=== PATIENT | female | born 1965 | race Caucasian/White ===

== ENCOUNTER 2019-03-22 13:55 | Inpatient (IN) ==
[2019-03-22] MEDS ORDERED: 0.9 % Sodium Chloride 1,000 ML IVC ONE (14:31)
[2019-03-22 15:21] LABS: Bilirubin,Urine Negative (Negative); Blood,Urine Negative (Negative); Clarity,Urine Clear (Clear); Color,Urine Yellow (Yellow); Glucose,Urine (UA) >=1000 mg/dL (Normal); Ketones,Urine Negative (Negative); Leukocyte Esterase,Urine Negative (Negative); Nitrite,Urine Negative (Negative); PH,Urine 5.5 pH Units (5.0-8.0); Protein,Urine Negative (Neg-Trace); Specific Gravity,Urine > 1.030 (1.010-1.025); Urobilinogen,Urine Normal (Normal)
[2019-03-22 15:30] LABS: Basophils # 0.1 K/mcL (0.0-0.2); Basophils % 0.9 %; Eosinophils # 0.1 K/mcL (0.0-0.6); Eosinophils % 1.2 %; Hematocrit 39.8 % (35.3-44.9); Hemoglobin 12.7 g/dL (11.5-15.4); Immature Granulocytes % 0.3 % (0-4); Lymphocytes # 2.7 K/mcL (0.6-4.6); Lymphocytes % 25.1 %; Mean Corpuscular HGB Conc 31.9 g/dL (31.6-35.5); Mean Corpuscular Volume 93.9 fL (83.0-100.0); Mean Platelet Volume 9.8 fL (9.4-12.4); Monocytes # 0.7 K/mcL (0.0-1.3); Monocytes % 6.6 %; Platelet Count 380 K/mcL (140-400); Red Blood Count 4.24 M/mcL (3.82-4.97); Red Cell Distribution Width 12.5 % (11.5-14.5); Segmented Neutrophils % 65.9 %
[2019-03-22 15:47] LABS: Alanine Aminotransferase 11 Units/L (7-52); Albumin 3.8 g/dL (3.5-5.7); Albumin/Globulin Ratio 0.9 (1.1-2.2); Alkaline Phosphatase 98 Units/L (34-104); Aspartate Amino Transferase 10 Units/L (13-39); BUN/Creatinine Ratio 15 (6-26); Bilirubin,Total 0.4 mg/dL (0.3-1.0); Blood Urea Nitrogen 12 mg/dL (6-20); Calcium 9.5 mg/dL (8.6-10.3); Carbon Dioxide 26 mEq/L (23-29); Chloride 103 mEq/L (98-107); Globulin 4.4 g/dL (2.4-3.5); Glucose 301 mg/dL (70-105); Osmolality,Calculated 293 (280-300); Potassium 3.8 mEq/L (3.5-5.1); Sodium 136 mEq/L (136-145); Total Protein 8.2 g/dL (6.4-8.9); eGFR For Non-African Americans > 60 (> 60)
[2019-03-22] MEDS ORDERED: Piperacillin/Tazobactam 4.5 GM in Water for inj. (sterile) 20 ML 20 ML IVP ONE (16:39)
--- NOTE | 2019-03-22 16:40 | Emergency Department Note ---
Disposition Clinical Impression: Cellulitis of great toe, right, Hyperglycemia, Cellulitis Disposition: Admitted As Inpatient Condition: Good Referrals: Andry Flores MD [Primary Care Provider] - Forms: ED Satisfaction Letter Time of Disposition: 16:48 Extremity Problem HPI - General Chief complaint: ED Extremity Problem,Nontraumatic Stated complaint: Toe infection Time Seen by Provider: 03/22/19 14:24 Source: patient Limitations: no limitations - History of Present Illness HPI Narrative: Patient is a 53-year-old female that presents to the emergency department with chief complaint of swelling and pain to right great toe. Patient reports she has history of diabetes and has been having difficulty controlling her blood sugars. Patient states in the last 3 weeks her right great toe has become red and swollen and she is also noticed that she has had swollen lymph nodes in her groin and along her right leg. The patient reports this is similar to when her she has had infection on the left lower extremity for the past required debridement and also IV antibiotics. The patient reports the pain is worse with ambulation and improves with rest Pain Scale: 0 - Related Data Home Medications Medication Instructions Recorded Confirmed Albuterol Sulfate [Albuterol 2 puff IH Q4H PRN 04/22/16 04/22/16 Inhaler] Aspirin 81 mg PO DAILY 04/22/16 04/22/16 Carvedilol [Coreg] 6.25 mg PO BIDWM 04/22/16 04/22/16 Cetirizine HCl [Zyrtec] 10 mg PO DAILY 04/22/16 04/22/16 Cyclobenzaprine [Flexeril] 20 mg PO TID 04/22/16 04/22/16 Ezetimibe [Zetia] 10 mg PO QPM 04/22/16 04/22/16 Furosemide [Lasix] 20 mg PO DAILY 04/22/16 04/22/16 Gabapentin [Neurontin] 400 mg PO TID 04/22/16 04/22/16 Insulin ASPART [Novolog Flexpen] 25 - 30 unit SQ TIDWM 04/22/16 04/22/16 Insulin Glargine,Hum.rec.anlog 65 unit SQ HS 04/22/16 04/22/16 [Lantus Solostar] Lisinopril [Zestril] 10 mg PO DAILY 04/22/16 04/22/16 Rosuvastatin Calcium [Crestor] 10 mg PO QPM 04/22/16 04/22/16 Sitagliptin Phos/Metformin HCl 1 each PO BID 04/22/16 04/22/16 [Janumet 50-1,000 mg Tablet] Previous Rx's Medication Instructions Recorded OxyCODONE/APAP 5/325 [Percocet 1 each PO Q6HR PRN #30 tablet 04/22/16 5/325 MG] Ciprofloxacin [Cipro] 500 mg PO BID #20 tablet 11/07/17 Clindamycin [Cleocin] 300 mg PO Q6HR #40 capsule 11/07/17 HYDROcodone/Acet 10/325 mg [[place] 1 tab PO Q6HR PRN #10 tab 11/07/17 10-325 mg] Allergies Allergy/AdvReac Type Severity Reaction Status Date / Time latex AdvReac Blister Verified 11/07/17 08:53 tape AdvReac Blister Uncoded 11/07/17 08:53 topical antibiotics AdvReac Blister Uncoded 11/07/17 08:53 All systems ED: reviewed and negative except as stated. Past Medical History - Past Medical History Attestation: Yes The following information was validated with the patient. 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 Head: Normocephalic/atraumatic Eyes:PERRLA, EOMI, no conjunctivitis Nares: Without d/c. Ears: No erythema or d/c noted. Oralpharnyx: P&MMM noted, Neck: Supple, no JVD or HEAVY CLEANER noted. Cardovascular: regular rate and rhythm without murmur, brisk capillary refill, no peripheral edema. Lungs: Clear to ascultation bilaterally, non-labored Abd: Soft nontender, Non Distended, no guarding, no rebound. : Defered Extremities: moves all extremities equally and there is erythema of the right great toe and localized swelling to the great toe. There is no ulcer or fluctuance. Neuro: AOx3, no obvious gross neuro deficit Psych: Normal Affect Derm: No rash noted - General Limitations: no limitations General appearance: alert Course Vital Signs Temperature 98.6 F 03/22/19 14:08 Pulse Rate 101 03/22/19 14:08 Respiratory Rate 18 03/22/19 14:08 Blood Pressure 154/77 03/22/19 14:08 O2 Sat by Pulse Oximetry 98 03/22/19 14:08 Temperature 98.6 F 03/22/19 14:49 Pulse Rate 78 03/22/19 15:55 Respiratory Rate 16 03/22/19 15:55 Blood Pressure 104/65 03/22/19 15:55 O2 Sat by Pulse Oximetry 100 03/22/19 15:55 Oxygen Delivery Oxygen Delivery Room Air Extremity Problem, Nontraumati - Lab Data Result diagrams: 03/22/19 15:05 03/22/19 15:05 Lab Results 03/22/19 03/22/19 03/22/19 Range/Units 14:47 15:05 15:05 WBC (4.3-11.1) K/mcL RBC (3.82-4.97) M/mcL Hgb (11.5-15.4) g/dL Hct (35.3-44.9) % MCV (83.0-100.0) fL MCH (28.0-33.3) pg MCHC (31.6-35.5) g/dL RDW (11.5-14.5) % Plt Count (140-400) K/mcL MPV (9.4-12.4) fL Immature Gran % (0-4) % Seg Neutrophils % % Lymphocytes % % Monocytes % % Eosinophils % % Basophils % % Neutrophils # (1.6-8.9) K/mcL Lymphocytes # (0.6-4.6) K/mcL Monocytes # (0.0-1.3) K/mcL Eosinophils # (0.0-0.6) K/mcL Basophils # (0.0-0.2) K/mcL ESR >= 130 H (0-15) mm/hr Sodium (136-145) mEq/L Potassium (3.5-5.1) mEq/L Chloride (98-107) mEq/L Carbon Dioxide (23-29) mEq/L BUN (6-20) mg/dL Creatinine (0.60-1.20) mg/dL Est GFR ( Amer) (> 60) Est GFR (Non-Af Amer) (> 60) BUN/Creatinine Ratio (6-26) Glucose (70-105) mg/dL Calculated Osmolality (280-300) Lactic Acid 1.7 (0.5-2.2) mmol/L Calcium (8.6-10.3) mg/dL Total Bilirubin (0.3-1.0) mg/dL AST (13-39) Units/L ALT (7-52) Units/L Alkaline Phosphatase (34-104) Units/L C-Reactive Protein (Less than 10) mg/L Serum Total Protein (6.4-8.9) g/dL Albumin (3.5-5.7) g/dL Globulin (2.4-3.5) g/dL Albumin/Globulin Ratio (1.1-2.2) Urine Color Yellow (Yellow) Urine Clarity Clear (Clear) Urine pH 5.5 (5.0-8.0) pH Units Ur Specific [place] > 1.030 H (1.010-1.025) Urine Protein Negative (Neg-Trace) mg/dL Urine Glucose (UA) >=1000 H (Normal) mg/dL Urine Ketones Negative (Negative) mg/dL Urine Blood Negative (Negative) Urine Nitrite Negative (Negative) Urine Bilirubin Negative (Negative) Urine Urobilinogen Normal (Normal) mg/dL Ur Leukocyte Esterase Negative (Negative) Ur Culture Indicated? NO (NO) 03/22/19 03/22/19 03/22/19 Range/Units 15:05 15:05 15:05 WBC 10.7 (4.3-11.1) K/mcL RBC 4.24 (3.82-4.97) M/mcL Hgb 12.7 (11.5-15.4) g/dL Hct 39.8 (35.3-44.9) % MCV 93.9 (83.0-100.0) fL MCH 30.0 (28.0-33.3) pg MCHC 31.9 (31.6-35.5) g/dL RDW 12.5 (11.5-14.5) % Plt Count 380 (140-400) K/mcL MPV 9.8 (9.4-12.4) fL Immature Gran % 0.3 (0-4) % Seg Neutrophils % 65.9 % Lymphocytes % 25.1 % Monocytes % 6.6 % Eosinophils % 1.2 % Basophils % 0.9 % Neutrophils # 7.0 (1.6-8.9) K/mcL Lymphocytes # 2.7 (0.6-4.6) K/mcL Monocytes # 0.7 (0.0-1.3) K/mcL Eosinophils # 0.1 (0.0-0.6) K/mcL Basophils # 0.1 (0.0-0.2) K/mcL ESR (0-15) mm/hr Sodium 136 (136-145) mEq/L Potassium 3.8 (3.5-5.1) mEq/L Chloride 103 (98-107) mEq/L Carbon Dioxide 26 (23-29) mEq/L BUN 12 (6-20) mg/dL Creatinine 0.79 (0.60-1.20) mg/dL Est GFR ( Amer) > 60 (> 60) Est GFR (Non-Af Amer) > 60 (> 60) BUN/Creatinine Ratio 15 (6-26) Glucose 301 H (70-105) mg/dL Calculated Osmolality 293 (280-300) Lactic Acid (0.5-2.2) mmol/L Calcium 9.5 (8.6-10.3) mg/dL Total Bilirubin 0.4 (0.3-1.0) mg/dL AST 10 L (13-39) Units/L ALT 11 (7-52) Units/L Alkaline Phosphatase 98 (34-104) Units/L C-Reactive Protein 154 H (Less than 10) mg/L Serum Total Protein 8.2 (6.4-8.9) g/dL Albumin 3.8 (3.5-5.7) g/dL Globulin 4.4 H (2.4-3.5) g/dL Albumin/Globulin Ratio 0.9 L (1.1-2.2) Urine Color (Yellow) Urine Clarity (Clear) Urine pH (5.0-8.0) pH Units Ur Specific [place] (1.010-1.025) Urine Protein (Neg-Trace) mg/dL Urine Glucose (UA) (Normal) mg/dL Urine Ketones (Negative) mg/dL Urine Blood (Negative) Urine Nitrite (Negative) Urine Bilirubin (Negative) Urine Urobilinogen (Normal) mg/dL Ur Leukocyte Esterase (Negative) Ur Culture Indicated? (NO)
[2019-03-22] MEDS ORDERED: Piperacillin/Tazobactam 3.375 GM in 0.9 % Sodium Chloride Mini Bag 100 ML IVPB ONE (16:43)
[2019-03-22] MEDS ORDERED: *HR* OxyCODONE/APAP 5/325 TABLET PO ONE (17:02)
--- NOTE | 2019-03-22 17:31 | Internal Med History&Physical ---
Date of Encounter: 03/22/19 Time of Encounter: 17:30 Internal Medicine - H&P: HPI Chief complaint: Right foot pain Admitted From: Home Plans for Post Hospital Care: Home History of present illness: Ms. Gallo is a 53 year old female with past medical history of DM-II, PVD, HLD, HTN, current smoker (smokes 1PPD), who presents with right great toe, swelling, edema, pain, and redness. Pt states she was walking in the [place] with her friends about 2 weeks ago. She states she noticed her toe had a hole in it about a day or so later. She states she tried to self treat at home but got progressively worse. Pt states she would have ocme in sooner but did not have insurance. Pt admits to fever and chills. Denies N/V ro diarrhea. In ED CBC WNL. BMP showed glucose 310. Right foot x ray XR/XR foot 3V RT IMPRESSION: Severe osteomyelitis of the 1st distal phalanx. Associated pathologic fracture. FULL code. Past Med Surg Social Fam HX - Past Medical History Medical history: asthma, diabetes, hyperlipidemia, hypertension, myocardial infarction, seizures Additional medical history: HTN. DM. Incisional hernia. latex allergy. COPD. Carotid bruit Psychiatric history: anxiety, bipolar, depression - Past Surgical History Surgical History: appendectomy, cholecystectomy Additional surgical history: bilat. shoulder surgeries, elbow surgery - Social History Smoking Status: Current every day smoker Smokeless Tobacco Status: No Alcohol use: none Drug use: none Internal Medicine - H&P: Meds Albuterol Sulfate [Albuterol Inhaler] 2 puff IH Q4H PRN 04/22/16 [History] Aspirin 81 mg PO DAILY 04/22/16 [History] Cetirizine HCl [Zyrtec] 10 mg PO DAILY 04/22/16 [History] Insulin ASPART [Novolog Flexpen] 25 - 30 unit SQ TIDWM 04/22/16 [History] Insulin Glargine,Hum.rec.anlog [Lantus Solostar] 65 unit SQ HS 04/22/16 [History] Rosuvastatin Calcium [Crestor] 10 mg PO QPM 04/22/16 [History] Allergy/AdvReac Type Severity Reaction Status Date / Time latex AdvReac Blister Verified 11/07/17 08:53 tape AdvReac Blister Uncoded 11/07/17 08:53 topical antibiotics AdvReac Blister Uncoded 11/07/17 08:53 All Systems PM: A 10-system review of systems was performed and is negative for pertinent findings except as documented above in the HPI. - Constitutional Vitals: Temp Pulse Resp BP Pulse Ox 98.6 F 78 16 104/65 100 03/22/19 14:49 03/22/19 15:55 03/22/19 15:55 03/22/19 15:55 03/22/19 15:55 General appearance: Present: A&O X 3, no acute distress Exam: . - Head Head exam: Present: atraumatic, normocephalic - Eye Eye exam: Present: PERRL, conjuntiva pink, sclera anicteric Pupils: Present: PERRL - Neck Neck exam general surgery: Present: supple, trachea midline. Absent: lymphadenopathy - Respiratory Respiratory exam: Present: CTAB. Absent: accessory muscle use, rales, rhonchi, wheezes - Cardiovascular Cardiovascular exam: Present: RRR, +S1, +S2. Absent: diastolic murmur, gallop, rubs, systolic murmur - GI/Abdominal GI/Abdominal exam: Present: normal bowel sounds, soft, no peritoneal signs. Absent: distended, tenderness - Extremities Exam Extremities exam: Present: tenderness, warm, radial pulses palpable and symmetrical. Absent: calf tenderness, cyanotic, pedal edema Additional comments: swollen, erythematous R great toe that is painful to the touch - Neurological Exam Neurological exam: Present: CN II-XII intact, oriented X3, no focal deficits. Absent: pronater drift, facial droop, speech deficit - Skin Skin exam: Present: dry, intact Internal Med - H&P Results - Labs CBC & Chem 7: 03/22/19 15:05 03/22/19 15:05 Labs: Short CBC 03/22/19 Range/Units 15:05 WBC 10.7 (4.3-11.1) K/mcL Hgb 12.7 (11.5-15.4) g/dL Hct 39.8 (35.3-44.9) % Plt Count 380 (140-400) K/mcL Neutrophils # 7.0 (1.6-8.9) K/mcL BMP 03/22/19 15:05 Sodium 136 Potassium 3.8 Chloride 103 Carbon Dioxide 26 BUN 12 Creatinine 0.79 Glucose 301 H Calcium 9.5 Liver Function 03/22/19 Range/Units 15:05 Total Bilirubin 0.4 (0.3-1.0) mg/dL AST 10 L (13-39) Units/L ALT 11 (7-52) Units/L Alkaline Phosphatase 98 (34-104) Units/L Albumin 3.8 (3.5-5.7) g/dL Urine 03/22/19 Range/Units 14:47 Urine Color Yellow (Yellow) Urine Clarity Clear (Clear) Urine pH 5.5 (5.0-8.0) pH Units Ur Specific [place] > 1.030 H (1.010-1.025) Urine Protein Negative (Neg-Trace) mg/dL Urine Glucose (UA) >=1000 H (Normal) mg/dL - Impressions ITS Impressions Chest X-Ray 03/22/19 14:32 IMPRESSION: No active cardiopulmonary disease D/ / Hermilo Oquendo MD / Hermilo Oquendo MD Interpreting Provider: Hermilo Oquendo MD Foot X-Ray 03/22/19 14:36 IMPRESSION: Severe osteomyelitis of the 1st distal phalanx. Associated pathologic fracture. D/ / Matt Dennison MD / Matt Dennison MD Interpreting Provider: Matt Dennison MD - Assessment and Plan (1) Osteomyelitis Current Visit: Yes Status: Acute Assessment and plan: Started on Vancomycin and Zosyn. Podiatry consulted. Pt reports similar infection in left last year. Qualifiers: Qualified Code(s): M86.9 - Osteomyelitis, unspecified (2) Diabetes type 2, uncontrolled Current Visit: Yes Status: Acute Assessment and plan: Will check Hgb A1c. Place on insulin and SSI Qualifiers: Qualified Code(s): E11.65 - Type 2 diabetes mellitus with hyperglycemia (3) HLD (hyperlipidemia) Current Visit: Yes Status: Acute Assessment and plan: Resume home meds Qualifiers: Qualified Code(s): E78.5 - Hyperlipidemia, unspecified (4) Essential hypertension Current Visit: Yes Status: Acute Assessment and plan: hydralazine PRN. Pt needs to clarify home BP medication. - Time Spent With Patient Total time spent is greater than 50% in coordination of care (as documented) at patient's floor/unit and/or counseling patient: Greater than 35 minutes
[2019-03-22] MEDS ORDERED: *HR* Dextrose 50 % in Water (Syg) 50 ML SYRINGE IVP PRN (17:57)
[2019-03-22] MEDS ORDERED: D5% in Water 1,000 ML IVC PRN (17:57)
[2019-03-22] MEDS ORDERED: Dextrose Gel 15 GM/37.5 ML TUBE PO PRN ×2 (17:57)
[2019-03-22] MEDS ORDERED: hydrALAZINE 10 MG TABLET PO PRN (18:06)
[2019-03-22 20:29] LABS: Estimated Average Glucose 286 mg/dl; Hemoglobin A1C 11.6 %
[2019-03-22] MEDS ORDERED: Insulin DETEMIR 100 UNIT/ML X5UNITS SQ SCH (21:00)
[2019-03-22] MEDS ORDERED: Acetaminophen 325 MG TABLET PO PRN (21:26)
[2019-03-23] MEDS: Piperacillin/Tazobactam 3.375 GM in 0.9 % Sodium Chloride Mini Bag 100 ML IVPB SCH ×3 (00:26→17:15)
[2019-03-23] MEDS ORDERED: Ibuprofen 400 MG TABLET PO ONE (00:38)
[2019-03-23 04:18] LABS: Basophils # 0.1 K/mcL (0.0-0.2); Basophils % 0.6 %; Eosinophils # 0.2 K/mcL (0.0-0.6); Eosinophils % 2.2 %; Hematocrit 34.3 % (35.3-44.9); Immature Granulocytes % 0.2 % (0-4); Lymphocytes % 36.5 %; Mean Corpuscular HGB Conc 31.2 g/dL (31.6-35.5); Mean Corpuscular Hemoglobin 29.7 pg (28.0-33.3); Mean Corpuscular Volume 95.3 fL (83.0-100.0); Monocytes # 0.7 K/mcL (0.0-1.3); Monocytes % 8.8 %; Neutrophils # 4.2 K/mcL (1.6-8.9); Platelet Count 313 K/mcL (140-400); Red Cell Distribution Width 12.6 % (11.5-14.5); Segmented Neutrophils % 51.7 %
[2019-03-23 04:19] LABS: Hemoglobin 10.7 g/dL (11.5-15.4)
[2019-03-23 04:39] LABS: Alanine Aminotransferase 8 Units/L (7-52); Albumin 3.2 g/dL (3.5-5.7); Albumin/Globulin Ratio 0.9 (1.1-2.2); Alkaline Phosphatase 77 Units/L (34-104); Aspartate Amino Transferase 10 Units/L (13-39); BUN/Creatinine Ratio 23 (6-26); Bilirubin,Total 0.3 mg/dL (0.3-1.0); Blood Urea Nitrogen 16 mg/dL (6-20); Calcium 8.4 mg/dL (8.6-10.3); Carbon Dioxide 24 mEq/L (23-29); Chloride 110 mEq/L (98-107); Globulin 3.6 g/dL (2.4-3.5); Glucose 75 mg/dL (70-105); Osmolality,Calculated 290 (280-300); Potassium 4.1 mEq/L (3.5-5.1); Sodium 140 mEq/L (136-145); Total Protein 6.8 g/dL (6.4-8.9); eGFR For Non-African Americans > 60 (> 60)
[2019-03-23] MEDS ORDERED: Loratadine 10 MG TABLET PO SCH (09:00)
[2019-03-23] MEDS ORDERED: Aspirin 81 MG TAB.CHEW PO SCH (09:00)
[2019-03-23] MEDS: Insulin LISPRO 300 UNITS/3 ML VIAL SQ SCH ×3 (09:40→19:33)
--- NOTE | 2019-03-23 09:49 | Podiatry Consult Note ---
Date of Encounter: 03/23/19 Time of Encounter: 09:05 Assessment and Plan (1) Ulcer of right great toe due to diabetes mellitus Current visit: Yes Status: Acute Assessment: -Right great toe edematous and erythemic with ulcer measuring 0.7 x 0.5 x 0.6 cm noted distal medial aspect with minimal serosanguineous drainage. No odor. The ulcer is flucutant and probes 0.6 cm but not to bone. No undermining. Dry flaking tissue noted around ulcer. Toenail thick, brittle, and mycotic with subungual debris. No lymphangitis noted. -2/4 PT and 1/4 DP pulse -Cap refill less than 3 seconds -No edema to lower extremity, no pain with calf squeeze, venous duplex showed evidence of a normal exam -WBC 8.1 -ESR >130, CRP 154 -Patient afebrile since midnight -Hgb A1c 11.6 -Right foot x-ray shows evidence of severe osteomyelitis of the 1st distal phalanx. Associated pathologic fracture -MRI shows evidence of osteomyelitis of the 1st distal phalanx with destructive changes Plan: -Exam and evaluate -Cultures (anaerobic and aerobic) obtained and left at bedside for nursing staff to label and sent to lab -Flushed ulcer with sterile salie -Painted site with betadine and covered with dry 4x4 and Kerlix dressing, secured with tape -Keep NPO -OR later today for I&D, possible partial versus whole amputation of toe by Dr. Gauthier -Nature of the procedure, risks versus benefits, potential complications, consequences of surgery,and conditions discussed. All questions and concerns addressed. Consent signed and placed in chart. (2) Diabetes type 2, uncontrolled Current visit: Yes Status: Acute Assessment: -Patient reports she has not had insurance for approximately two months until yesterday and has not had appropriate medication for her diabetes -BS 75 down from 301 on 03/23/2019 -Hgb A1c 11.6 Plan: Tight glycemic control to prevent further complications and promote wound healing Qualifiers: Glycemic state: with hyperglycemia Qualified Code(s): E11.65 - Type 2 diabetes mellitus with hyperglycemia History of Present Illness HPI: Ms. Gallo is a 53 year old female admitted to the hospital for pain, swelling, and redness to right great toe. Patient does have a past medical history of diabetes type II, peripheral vascular disease, hyperlipidemia, and hypertension. She reports she has a history of thickened skin to the end of her toes and has been treated by Dr. Huff in the past for toe ulcers. She has not had insurance for approximately 2 months until yesterday and during that time the only insulin she was using was fast acting insulin and it may have been outdated. She reports two weeks ago she was walking in a [place] bed with her shoes on. She denies any injury, but states she was watching the right toe due to the callus. Patient reports one week ago she developed redness, swelling, and pain to the right great toe with associated symptoms of intermittent fever, diarrhea, and chills. Her highest temperature here in the hospital and at home has been 100.4. She denies any chest pain or shortness of breath. She does report calf tenderness. Patient did undergo a venous duplex since her admission that showed evidence of normal right lower extremity deep and superficial venous exam and normal contralateral common femoral artery. An CBC revealed a WBC of 8.1, ESR >130, and CRP 154. Patient's Hgb A1c is 11.6. She did have a right foot x-ray that showed evidence of severe osteomyelitis of the 1st distal phalanx. Associated pathologic fracture. An MRI was completed of the right foot that showed evidence of osteomyelitis of the 1st distal phalanx with destructive changes. Patient was started on IV Zosyn and Vancomycin. Patient reports the pain in her toe is better today and rates it as a 5 on a 1-10 pain scale. Patient reports she is a smoker. Discussed with patient in length that her diabetes and tobacco use are contributing to her wound and to prevent further complications and promote healing she needed to control her blood sugars and keep them below 150 and stop smoking. Patient was tearful and in agreement. Past Med Surg Social Fam HX - Past Medical History Medical history: asthma, diabetes, hyperlipidemia, hypertension, myocardial infarction, seizures Additional medical history: ONE SEIZURE 10 YEARS AGO RELATED TO LOW BLOOD SUGAR - DOES NOT TAKE SEIZURE MEDICATION Psychiatric history: anxiety, bipolar, depression - Past Surgical History Surgical History: appendectomy, cholecystectomy Additional surgical history: bilat. shoulder surgeries, elbow surgery - Social History Smoking Status: Current every day smoker Packs per day: 1 Smokeless Tobacco Status: No Alcohol use: none Drug use: none Medications and Allergies Albuterol Sulfate [Albuterol Inhaler] 2 puff IH Q4H PRN 04/22/16 [History] Aspirin 81 mg PO DAILY 04/22/16 [History] Cetirizine HCl [Zyrtec] 10 mg PO DAILY 04/22/16 [History] Insulin ASPART [Novolog Flexpen] 25 - 30 unit SQ TIDWM 04/22/16 [History] Insulin Glargine,Hum.rec.anlog [Lantus Solostar] 65 unit SQ HS 04/22/16 [Histor y] Rosuvastatin Calcium [Crestor] 10 mg PO QPM 04/22/16 [History] Allergy/AdvReac Type Severity Reaction Status Date / Time latex AdvReac Blister Verified 11/07/17 08:53 tape AdvReac Blister Uncoded 11/07/17 08:53 topical antibiotics AdvReac Blister Uncoded 11/07/17 08:53 All Systems Reviewed: The remainder of the systems were reviewed and are negative Review of systems: As per HPI - Constitutional Constitutional: fever(s) - Cardiovascular Cardiovascular: no chest pain - Respiratory Respiratory: no dyspnea Physical Exam - Constitutional Vitals: Temp Pulse Resp BP Pulse Ox 98.0 F 72 15 112/68 96 03/23/19 06:37 03/23/19 06:37 03/23/19 06:37 03/23/19 06:37 03/23/19 06:37 Exam: Constitutional: Alert and oriented x 3 female, no acute distress noted Vascular: 2/4 PT and 1/4 DP pulses bilaterally, cap refill less than 3 seconds, skin temperature warm from tibia to toes, no pain with calf squeeze, no edema noted Neurological: Diminished protective sensation Dermatological: Right great toe edematous and erythemic with ulcer measuring 0.7 x 0.5 x 0.6 cm noted distal medial aspect with minimal serosanguineous drainage. No odor. The ulcer is flucutant and probes 0.6 cm but not to bone. No undermining. Dry flaking tissue noted around ulcer. Toenail thick, brittle, and mycotic with subungual debris. No lymphangitis noted. Musculoskeletal: 4/5 muscle strength - Expanded Lower Extremities Exam 1 - 0.7 x 0.5 x 0.6 cm [place] Stage II ulcer Results - Labs Result Diagrams: 03/23/19 03:24 03/23/19 03:24 Labs: Abnormal lab results RBC 3.60 M/mcL (3.82-4.97) L 03/23/19 03:24 Hgb 10.7 g/dL (11.5-15.4) L D 03/23/19 03:24 Hct 34.3 % (35.3-44.9) L 03/23/19 03:24 MCHC 31.2 g/dL (31.6-35.5) L 03/23/19 03:24 ESR >= 130 mm/hr (0-15) H 03/22/19 15:05 Chloride 110 mEq/L (98-107) H 03/23/19 03:24 Glucose 301 mg/dL (70-105) H 03/22/19 15:05 11.6 % (-5.6) H 03/22/19 15:18 Calcium 8.4 mg/dL (8.6-10.3) L 03/23/19 03:24 AST 10 Units/L (13-39) L 03/23/19 03:24 154 mg/L (Less than 10) H 03/22/19 15:05 3.2 g/dL (3.5-5.7) L 03/23/19 03:24 3.6 g/dL (2.4-3.5) H 03/23/19 03:24 0.9 (1.1-2.2) L 03/23/19 03:24 Ur Specific [place] > 1.030 (1.010-1.025) H 03/22/19 14:47 >=1000 mg/dL (Normal) H 03/22/19 14:47 H & H 03/22/19 03/23/19 Range/Units 15:05 03:24 Hgb 12.7 10.7 L D (11.5-15.4) g/dL Hct 39.8 34.3 L (35.3-44.9) % All other labs normal. Consult Discharge Plan - [facility] [place] [Primary Care Provider] -
[2019-03-23] MEDS ORDERED: Vancomycin 1,000 MG VIAL ONE (15:07)
[2019-03-23] MEDS ORDERED: *HR* FentaNYL (PF) 100 MCG/2 ML VIAL ONE (15:12)
[2019-03-23] MEDS ORDERED: Propofol 500 MG/50 ML INFUS..BTL ONE (15:13)
[2019-03-23] MEDS ORDERED: *HR* Midazolam HCl 2 MG/2 ML VIAL ONE (15:13)
--- NOTE | 2019-03-23 15:14 | Anesthesia Evaluation PreOp ---
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: Seizures (one episode, not being medically treated) Other Medical History: Renal (kidney stones), Diabetes Type II, GERD Anesthesia History: No Prior Anesthetic Complications, Past Anesthesia Alcohol Use: none Drug use: none Medications and Allergies Albuterol Sulfate [Albuterol Inhaler] 2 puff IH Q4H PRN 04/22/16 [History] Aspirin 81 mg PO DAILY 04/22/16 [History] Cetirizine HCl [Zyrtec] 10 mg PO DAILY 04/22/16 [History] Insulin ASPART [Novolog Flexpen] 25 - 30 unit SQ TIDWM 04/22/16 [History] Insulin Glargine,Hum.rec.anlog [Lantus Solostar] 65 unit SQ HS 04/22/16 [History] Rosuvastatin Calcium [Crestor] 10 mg PO QPM 04/22/16 [History] Allergy/AdvReac Type Severity Reaction Status Date / Time latex AdvReac Blister Verified 11/07/17 08:53 tape AdvReac Blister Uncoded 11/07/17 08:53 topical antibiotics AdvReac Blister Uncoded 11/07/17 08:53 - Meds/Allergy Pre-op Review Medications Reviewed: Yes Allergies Reviewed: Yes Beta Blockers on Current Med List: Yes If Beta Blockers taken, Date/Time (Last Dose taken): does not recall when last taken Anesthesia Results - Labs 03/23/19 03:24 03/23/19 03:24 - Imaging EKG: report reviewed (04/15/2016 SINUS RHYTHM LOW QRS VOLTAGE IN PRECORDIAL LEADS POSSIBLE ANTERIOR MYOCARDIAL INFARCTION, PROBABLY OLD) Anesthesia Exam Vital Signs/O2 Sat/Glucose, Most Recent Temp Pulse Resp BP Pulse Ox 98.1 F 68 15 97/61 97 03/23/19 10:09 03/23/19 10:09 03/23/19 10:09 03/23/19 10:09 03/23/19 10:09 Blood Glucose* 104 Height: 5'4''/1.63m Weight: 132 lbs/60 kg NPO (# of Hours): 8 Pain Scale: 8 (right foot) Pain Scale Used: Numeric (1 - 10) - HEENT Pupil (Motor): EOMI Mallampati: II Teeth: Missing, Poor dentition Oral Opening: Greater than 3 - FURRIER DESIGNER LOC: Oriented FURRIER DESIGNER Motor: Normal RUE, Normal LUE, Normal RLE, Normal LLE, Normal Face FURRIER DESIGNER Sensory: Normal: Face, Deficit: RUE, LUE, RLE, LLE - Cardiac Rhythm: Regular Murmur: None - Pulmonary Breath Sounds: bilateral Clear Respiratory Effort: Symmetrical Anesthesia Assess/Plan ASA Score: 3 Level of consciousness: Cooperative, Oriented, Tranquil Anesthetic Plan: MAC Monitoring Plan: Standard Monitors
[2019-03-23] MEDS ORDERED: Lidocaine -MPF 2% 2 ML VIAL ONE (15:38)
[2019-03-23] MEDS ORDERED: Dexamethasone 4 MG/ML VIAL ONE (16:12)
[2019-03-23] MEDS ORDERED: Ondansetron 4 MG/2 ML VIAL ONE (16:12)
--- NOTE | 2019-03-23 16:18 | Internal Med Progress Note ---
Hospitalist Progress Note - Encounter Date of Encounter: 03/23/19 Time of Encounter: 16:15 - Subjective Interval History: Pt states swelling around R great toe is better than 03/22/2019. She denies fever, chills, N/V or diarrhea. She denies CP or SOB. - Exam Vitals: Temp Pulse Resp BP Pulse Ox 98.1 F 68 15 97/61 97 03/23/19 10:03/23/19 10:03/23/19 10:03/23/19 10:03/23/19 10:09 Exam: General appearance: Present: A&O X 3, no acute distress Exam: Head exam: Present: atraumatic, normocephalic Eye exam: Present: PERRL, conjuntiva pink, sclera anicteric Pupils: Present: PERRL Neck exam general surgery: Present: supple, trachea midline. Absent: lymph adenopathy Respiratory exam: Present: CTAB. Absent: accessory muscle use, rales, rhonchi, wheezes Cardiovascular exam: Present: RRR, +S1, +S2. Absent: diastolic murmur, gallop, rubs, systolic murmur GI/Abdominal exam: Present: normal bowel sounds, soft, no peritoneal signs. Absent: distended, tenderness Extremities exam: Present: tenderness, warm, radial pulses palpable and symmetrical. Absent: calf tenderness, cyanotic, pedal edema swollen, erythematous R great toe that is painful to the touch Neurological exam: Present: CN II-XII intact, oriented X3, no focal deficits. Absent: pronater drift, facial droop, speech deficit Skin exam: Present: dry, intact - Assessment and Plan (1) Osteomyelitis Current Visit: Yes Status: Acute Assessment and Plan: Started on Vancomycin and Zosyn. Seen by Podiatry and possible surgery in am. NPO after MN. (2) Diabetes type 2, uncontrolled Current Visit: Yes Status: Acute Assessment and Plan: Hgb A1c 11.6. Continue on insulin and SSI (3) HLD (hyperlipidemia) Current Visit: Yes Status: Acute Assessment and Plan: Resume home med, Crestor (4) Essential hypertension Current Visit: Yes Status: Acute Assessment and Plan: hydralazine PRN. Pt needs to clarify home BP medication. DVT Prophylaxis: Recommend heparin or Lovenox post op. SCD for now - Time Spent with Patient Total time spent is greater than 50% in coordination of care (as documented) at patient's floor/unit and/or counseling patient: less than 15 minutes Plan of Care Discussed with: patient Internal Medicine: Result - Labs CBC & Chem 7: 03/23/19 03:24 03/23/19 03:24 Labs: Short CBC 03/23/19 Range/Units 03:24 WBC 8.1 (4.3-11.1) K/mcL Hgb 10.7 L D (11.5-15.4) g/dL Hct 34.3 L (35.3-44.9) % Plt Count 313 (140-400) K/mcL Neutrophils # 4.2 (1.6-8.9) K/mcL BMP 03/23/19 03:24 Sodium 140 Potassium 4.1 Chloride 110 H Carbon Dioxide 24 BUN 16 Creatinine 0.70 Glucose 75 Calcium 8.4 L Liver Function 03/23/19 Range/Units 03:24 Total Bilirubin 0.3 (0.3-1.0) mg/dL AST 10 L (13-39) Units/L ALT 8 (7-52) Units/L Alkaline Phosphatase 77 (34-104) Units/L Albumin 3.2 L (3.5-5.7) g/dL - Impressions Impressions Foot MRI 03/22/19 18:13 IMPRESSION: Osteomyelitis of the 1st distal phalanx with destructive changes. D/ / 03/22/2019 20:13:34 [facility] Interpreting Provider: Alphonso Lopez MD Consult Discharge Plan - Plan [facility] [Primary Care Provider] - (1) Osteomyelitis Qualifiers: Qualified Code(s): M86.9 - Osteomyelitis, unspecified (2) Diabetes type 2, uncontrolled Qualifiers: Glycemic state: with hyperglycemia Qualified Code(s): E11.65 - Type 2 diabetes mellitus with hyperglycemia (3) HLD (hyperlipidemia) Qualifiers: Qualified Code(s): E78.5 - Hyperlipidemia, unspecified
--- NOTE | 2019-03-23 16:35 | Orthopedic Operative Note ---
Date of procedure: 03/23/19 Pre-op diagnosis: right 1st toe wound infectionn, osteomyelitis Post-op diagnosis: same Procedure: 03/23/19 16:35 1. Incision and drainage below fascia right 1st toe 2. Right 1st toe amputation Implants: None Complications: None Anesthesia: MAC, local Surgeon: Ino Gauthier Was there an respiratory care assistant present: No Estimated blood loss (cc): 1 Tourniquet Time (Minutes): 16 Specimen: Right 1st toe to pathology, bone and soft tissue culture to micro Condition: stable Disposition: floor Procedure in Detail: 03/23/19 16:36 INDICATIONS AND CONSENT Shannan Gallo is a 53 year old female who initially presented to the hospital with a right first toe infection. She reports that 2 weeks prior to admission, she was walking in a [place] and was unaware that she developed a wound to the toe. She denies any known trauma to the toe. She slowly developed redness to the first toe and had fevers. X-rays and MRI showed evidence of osteomyelitis and possible pathologic fracture of the right first toe distal phalanx. She also had elevated ESR and CRP. Surgical intervention was warranted for infection source control. This would include incision and drainage of all nonviable soft tissue and bone of the right first toe, with possible first toe amputation. We discussed the above procedures in detail. This included a discussion on the indications, contraindications, and possible complications including but not limited to: infection, non-healing wound, pain, swelling, bleeding, blood clots, heart complications, nerve injury, tendon injury, vascular injury, loss of limb, loss of life, and need for further surgery. We also reviewed the expected post operative course, including a discussion on the non-weightbearing status after this procedure. She related understanding of our discussion regarding this surgery. All questions were answered to her satisfaction, and a proper written informed consent was obtained, signed, and placed in the chart. No guarantees were given, stated or implied, as to the outcome of this procedure. PROCEDURE IN DETAIL The patient was seen in the pre-operative holding area by Anesthesia where she was consented for MAC with local block. The patient was then brought back to the operative suite and placed on the operating room table in the supine position. A sign-in was performed. MAC was then initiated per Anesthesia protocol. A well- padded pneumatic right ankle tourniquet was then placed. Next, the right lower leg was scrubbed, prepped, and draped in the usual aseptic manner. A [place] Time-Out was performed, and all parties in the room agreed. Next, an Esmarch was used to exsanguinate the right foot. The pneumatic ankle tourniquet was inflated to 200 mmHg. A total of 5 mL of 1% lidocaine plain was injected to the right first toe a digital block distribution. A 15 blade was used to make an incision at the distal aspect of the right first toe at the level of the ulcer and there was noted to be a small amount of purulent drainage extending to the level of bone at the distal phalanx. The bone of the distal phalanx appeared necrotic and fragmented. All nonviable soft tissue and bone was sharply debrided using a 15 blade and rongeur surrounding the first toe interphalangeal joint. Given the clinical appearance, and both radiographic and MRI evidence of osteomyelitis, was decided to perform a partial first toe amputation. The bone at the proximal phalanx appeared viable and healthy. A fishmouth incision was then made at the skin at the level of the interphalangeal joint. The toe was sent to pathology. The soft tissue culture was sent to micro for aerobe, anaerobe, acid fast, and fungal cultures. The wound was then irrigated with 3 L of normal saline infused with 1 gram of vancomycin powder. In order to surgically close the wound, the distal 2/3 of the proximal phalanx was excised using a surgical saw. A proximal bone culture was taken from this bone and sent to micro for aerobe, anaerobe, acid fast, and fungal cultures. The remaining soft tissue and bone appeared viable and healthy. The tourniquet was released and proper hyperemic response was noted to the remaining toes and 1st toe stump. The flexor hallucis longus tendon was tenodesed to the extensor hallucis longus tendon and dorsal 1st metatarsophalangeal joint capsule using 2-0 Vicryl. The subcutaneous tissue was re-approximated using 2-0 Vicryl. The skin was re-approximated under minimal tension using 2-0 Nylon. A total of 10mL of 0.5% sensorcaine plain was injected to the right foot in a Blanchard block distribution. A dry, sterile dressing was then applied, which consisted of: adaptic, 4x4's, Kerlix fluffs, ABDs, and Kerlix roll with JANI wrap. A sign-out was performed. The patient tolerated anesthesia and the procedure wel l, and was transferred to PAC-U with vital signs stable and vascular status intact to the right lower extremity. Needle and sponge counts were correct X 2 at the end of the case. Dr. Ino Gauthier was present, scrubbed, and participated in all vital aspects of the procedure. After a brief stay in PAC-U, the patient will be transferred back to the floor for continued monitoring and IV antibiotics. The remaining soft tissue and bone appeared viable and healthy. We will follow operative cultures and will tailor antibiotics at discharge to these culture sensitivities. Patient could require repeat I&D with partial 1st ray amputation if clinical picture worsens. 03/23/19 16:48 03/23/19 16:52
[2019-03-23] MEDS ORDERED: *HR* Dextrose 50 % in Water (Syg) 50 ML SYRINGE IVP PRN (17:16)
[2019-03-23] MEDS ORDERED: hydrALAZINE 10 MG TABLET PO PRN (17:16)
[2019-03-23] MEDS ORDERED: Dextrose Gel 15 GM/37.5 ML TUBE PO PRN ×2 (17:16)
[2019-03-23] MEDS ORDERED: D5% in Water 1,000 ML IVC PRN (17:16)
[2019-03-23] MEDS ORDERED: Insulin DETEMIR 100 UNIT/ML X5UNITS SQ SCH ×2 (21:00)
[2019-03-23] MEDS: Acetaminophen 325 MG TABLET PO PRN (21:25)
[2019-03-24] MEDS: Piperacillin/Tazobactam 3.375 GM in 0.9 % Sodium Chloride Mini Bag 100 ML IVPB SCH ×3 (00:12→17:04)
[2019-03-24] MEDS: traMADol 50 MG TABLET PO PRN ×2 (00:14→15:23)
[2019-03-24] MEDS: Loratadine 10 MG TABLET PO SCH (08:50)
[2019-03-24] MEDS: Aspirin 81 MG TAB.CHEW PO SCH (08:51)
[2019-03-24] MEDS: Insulin LISPRO 300 UNITS/3 ML VIAL SQ SCH ×3 (08:52→16:59)
--- NOTE | 2019-03-24 09:09 | Internal Med Progress Note ---
Hospitalist Progress Note - Encounter Date of Encounter: 03/24/19 Time of Encounter: 08:00 - Subjective Interval History: No acute events. Patient feels well. Status post right first toe partial amputation due to osteitis. Remains on IV Vancomycin and Zosyn. Afebrile - Exam Vitals: Temp Pulse Resp BP Pulse Ox 97.6 F 83 16 125/58 95 03/24/19 07:11 03/24/19 07:11 03/24/19 07:11 03/24/19 07:11 03/24/19 07:11 Exam: GEN: NAD CVS: RRR. S1, S2, No m/r/g RESP: CTAB ABD: Soft, NT, ND, +BS EXT: No edema. 2+ DP. No rashes. Right lower extremity is wrapped the foot. NEURO: Nonfocal - Assessment and Plan (1) Osteomyelitis Current Visit: Yes Status: Acute Assessment and Plan: Status post partial right first amputation. Continues on IV antibiotics with IV vancomycin and Zosyn. We will follow up on cultures. Do not stop antibiotics today until cultures are finalized. Discussed with podiatry for his (2) Diabetes type 2, uncontrolled Current Visit: Yes Status: Acute Assessment and Plan: Continue Levemir 20 units daily at bedtime as well as sliding scale insulin. Continue Accu-Cheks (3) HLD (hyperlipidemia) Current Visit: Yes Status: Acute Assessment and Plan: Continue home meds (4) Essential hypertension Current Visit: Yes Status: Acute Assessment and Plan: Continue home meds (5) DVT prophylaxis Current Visit: Yes Status: Acute Assessment and Plan: Heparin subcutaneous - Time Spent with Patient Total time spent is greater than 50% in coordination of care (as documented) at patient's floor/unit and/or counseling patient: Internal Medicine: Result - Labs CBC & Chem 7: 03/23/19 03:24 03/23/19 03:24 Consult Discharge Plan - Plan Referrals: Sandra,Andry Newby MD [Primary Care Provider] - (1) Osteomyelitis Qualifiers: Qualified Code(s): M86.9 - Osteomyelitis, unspecified (2) Diabetes type 2, uncontrolled Qualifiers: Glycemic state: with hyperglycemia Qualified Code(s): E11.65 - Type 2 diabetes mellitus with hyperglycemia (3) HLD (hyperlipidemia) Qualifiers: Qualified Code(s): E78.5 - Hyperlipidemia, unspecified
--- NOTE | 2019-03-24 09:34 | Podiatry Progress Note ---
Date of Encounter: 03/24/19 Time of Encounter: 09:00 - Assessment and Plan (1) Ulcer of right great toe due to diabetes mellitus Current Visit: Yes Status: Acute Assessment: -Post op day #1 1. Incision and drainage below fascia right 1st toe 2. Right 1st toe amputation by Dr. Gauthier on 03/23/2019 -Dressing dry and intact RLE, no strike through noted, no swelling above dressing -2/4 PT pulse -Cap refill less than 3 seconds -No pain with calf squeeze -ESR >130, CRP 154 -Patient remains afebrile -Hgb A1c 11.6 -Right foot x-ray shows evidence of severe osteomyelitis of the 1st distal phalanx. Associated pathologic fracture -MRI shows evidence of osteomyelitis of the 1st distal phalanx with destructive changes -Blood culture preliminary Stap aureus -Wound cultures preliminary -Surgical wound cultures preliminary -Surgical path specimen pending Plan: -Do not change dressing, Dr. Gauthier to change this weekend -Call if dressing becomes saturated -Pending surgical cultures and path specimen to determine appropriate IV or PO antibiotic therapy -Recommend ID consult antibiotic recommendations appreciated -Will continue to monitor (2) Diabetes type 2, uncontrolled Current Visit: Yes Status: Acute Assessment: -Patient reports she has not had insurance for approximately two months until yesterday and has not had appropriate medication for her diabetes -Hgb A1c 11.6 Plan: Tight glycemic control to prevent further complications and promote wound healing Qualifiers: Glycemic state: with hyperglycemia Qualified Code(s): E11.65 - Type 2 diabetes mellitus with hyperglycemia Subjective Interval history: Post op day #1: 1. Incision and drainage below fascia right 1st toe 2. Right 1st toe amputation by Dr. Gauthier in 03/23/2019 Patient is alert and oriented, eating breakfast, no acute distress noted. Patient denies any chest pain, shortness of breath, or calf pain. She denies any fever, chills, nausea, vomiting, or diarrhea. Objective - Vital Signs Vital Signs: Vital Signs Temp Pulse Resp BP Pulse Ox 03/24/19 07:11 97.6 F 83 16 125/58 95 03/24/19 04:15 97.5 F L 59 16 119/52 96 03/24/19 00:19 98.3 F 64 16 130/68 95 03/23/19 19:51 97.9 F 111 15 150/69 92 03/23/19 16:55 98.9 F 62 17 99/60 95 03/23/19 10:09 98.1 F 68 15 97/61 97 Intake and Output 03/23/19 03/24/19 03/24/19 23:59 07:59 15:59 Intake Total 490 / 590 1100 / 1100 Output Total / 0 / 0 Balance 489 / 589 1100 / 1100 Intake: IV Fluids 250 / 350 100 / 100 Zosyn 3.375 GM In 0.9 % Sodium 100 / 100 Chloride (Mini-Bag +) 100 ML @ 25 mls/hr IVPB Q8HR JAIME Rx#: [id number] Vancocin 1,000 MG In 0.9 % 250 / 250 Sodium Chloride 250 ML @ 167 mls/hr IVPB Q12H JAIME Rx#: [id number] Oral 240 / 240 1000 / 1000 Output: Urine 0 / 0 Estimated Blood Loss Other: Meal Dinner Percent of Meal Consumed 65% # Voids 2 Weight 59.7 kg Blood Glucose* 329 230 Patient Weight 03/24/19 23:59 Weight 59.7 kg - Exam Exam: Constitutional: Alert and oriented x 3 female, no acute distress noted Vascular: 2/4 PT pulse noted, cap refill to exposed digits less romero 3 seconds, no swelling above dressing, no pain with calf squeeze Dermatological: Dressing dry and intact, no strike through noted, no swelling above dressing Musculoskeletal: Movement of toes noted - Lab Result Diagrams: 03/23/19 03:24 03/23/19 03:24 Labs: Abnormal lab results RBC 3.60 M/mcL (3.82-4.97) L 03/23/19 03:24 Hgb 10.7 g/dL (11.5-15.4) L D 03/23/19 03:24 Hct 34.3 % (35.3-44.9) L 03/23/19 03:24 MCHC 31.2 g/dL (31.6-35.5) L 03/23/19 03:24 ESR >= 130 mm/hr (0-15) H 03/22/19 15:05 Chloride 110 mEq/L (98-107) H 03/23/19 03:24 Glucose 301 mg/dL (70-105) H 03/22/19 15:05 POC Glucose 109 mg/dL (70-99) H 03/23/19 17:28 11.6 % (-5.6) H 03/22/19 15:18 Calcium 8.4 mg/dL (8.6-10.3) L 03/23/19 03:24 AST 10 Units/L (13-39) L 03/23/19 03:24 154 mg/L (Less than 10) H 03/22/19 15:05 3.2 g/dL (3.5-5.7) L 03/23/19 03:24 3.6 g/dL (2.4-3.5) H 03/23/19 03:24 0.9 (1.1-2.2) L 03/23/19 03:24 Ur Specific [place] > 1.030 (1.010-1.025) H 03/22/19 14:47 >=1000 mg/dL (Normal) H 03/22/19 14:47 Microbiology, Last 48 Hours 03/22/19 15:05 Blood Culture - Preliminary Peripheral Venipuncture Staphylococcus aureus 03/23/19 16:34 Wound Culture - Preliminary Surgery Culture is incubating. 03/23/19 16:34 Anaerobic Culture - Preliminary Surgery Culture is incubating. 03/23/19 10:40 Anaerobic Culture - Preliminary Right Great Toe Culture is incubating. 03/23/19 10:40 Wound Culture - Preliminary Right Great Toe Culture is incubating. 03/22/19 15:07 Blood Culture - Preliminary Peripheral Venipuncture Culture is incubating and being continuously monitored for growth. Final report to follow. Consult Discharge Plan - Plan Referrals: Andry Flores MD [Primary Care Provider] -
[2019-03-24] MEDS ORDERED: Vancomycin 500 MG in 0.9 % Sodium Chloride Mini Bag 100 ML IVPB ONE (10:30)
[2019-03-24 11:54] LABS: Acinetobacter baumannii by PCR Not Detected (Not Detect); Candida albicans by PCR Not Detected (Not Detect); Candida glabrata by PCR Not Detected (Not Detect); Candida krusei by PCR Not Detected (Not Detect); Candida parapsilosis by PCR Not Detected (Not Detect); Candida tropicalis by PCR Not Detected (Not Detect); Enterobacter cloacae Cmplx PCR Not Detected (Not Detect); Enterobacteriaceae by PCR Not Detected (Not Detect); Enterococcus by PCR Not Detected (Not Detect); Escherichia coli by PCR Not Detected (Not Detect); Klebsiella oxytoca by PCR Not Detected (Not Detect); Klebsiella pneumoniae by PCR Not Detected (Not Detect); Proteus by PCR Not Detected (Not Detect); Pseudomonas aeruginosa by PCR Not Detected (Not Detect); Serratia marcescens by PCR Not Detected (Not Detect); Staphylococcus aureus by PCR DETECTED (Not Detect); Staphylococcus by PCR DETECTED (Not Detect); Streptococcus agalactiae(B)PCR Not Detected (Not Detect); Streptococcus by PCR Not Detected (Not Detect); Streptococcus pneumoniae PCR Not Detected (Not Detect); Streptococcus pyogenes (A) PCR Not Detected (Not Detect); blaKPC Carbapenem-Resist Gene Not Detected (Not Detect); mecA Methicillin-Resist Gene Not Detected (Not Detect); vanA/B Vancomycin-Resist Genes Not Detected (Not Detect)
--- NOTE | 2019-03-24 14:24 | Infectious Disease Consult ---
Infectious Disease-Consult - Encounter Date/Time Date of Encounter: 03/24/19 Time of Encounter: 14:07 - Data of Consult Patient: new to practice Reason for consult: Osteomyelitis and bacteremia. Antibiotic recommendations Consult date: 03/24/19 Requesting Physician: Melissa Calderon MD Primary Care Provider: Andry Flores MD - HPI HPI: Patient is a 53-year-old woman who presented to [facility] on 03/22/2019 with right foot pain, we are consult did 03/24/2019 for osteomyelitis and bacteremia. Patient is a 53-year-old woman who has a past medical history significant for diabetes mellitus type 2, peripheral vascular disease, hyperlipidemia and hypertension and tobacco use currently smoking 1 pack per day presented to [facility] emergency room with right great toe swelling and edema pain and redness. Patient apparently has been diabetic for a few years and is insulin-dependent. Patient moved from [place] and has lost her insurance and has not had her treatments for quite some time. Patient tells me that she has had a previous infection in the left leg but it healed. In the right foot patient has noted the swelling and the redness 2 weeks prior to admission. Patient denies any fevers or chills nor rigors. Since admission, MAXIMUM TEMPERATURE 100.4, tachycardia with no tachypnea. Presenting labs reveal WBC that is within normal limit with normal differential. BUN 12 creatinine 0.79. Hemoglobin A1c was 11.6. Inflammatory markers reveal a CRP of 154 and ESR > 130. Blood cultures 1 out of 2 sets 03/22/2019 positive for Staphylococcus aureus MSSA. MRI of the right foot revealed osteomyelitis of the first distal phalanx with destructive changes. Patient was taken to surgery by Dr. Benjamin 03/23/2019 where she underwent incision and drainage below fascia right first toe and right first toe amputation. Intra-Op cultures and pathology are pending. Patient is currently on vancomycin and Zosyn. We were asked to evaluate the patient's make further recommendations. Currently patient laying in bed and appears comfortable. She tells me she feels sad. Nontoxic and in no distress. Review of system is otherwise unremarkable. - ROS Review of Systems: 10 point review of systems done, pertinent positives and negatives are mentioned in the history of present illness. - Results CBC & Chem 7: 03/23/19 03:24 03/23/19 03:24 - Exam Vitals: Temp Pulse Resp BP Pulse Ox 97.7 F 74 18 104/48 95 03/24/19 10:28 03/24/19 10:28 03/24/19 10:28 03/24/19 10:28 03/24/19 10:28 Exam: HEAD: Normocephalic atraumatic EYES: PERRLA, EOMI, no conjunctival hemorrhage, sclera anicteric ENT: Mucous membranes moist, no oral thrush NECK: Supple. No meningeal signs. No masses LUNGS: Chest expanding symmetrically. Lungs sounds audible both lung hendrickson. No wheezing, no rhonchi CV: RRR, S1S2, ABDOMEN: Soft, nontender, nondistended. Bowel sounds audible BACK: No CVA tenderness. Normal inspection. No tenderness over the spine EXTREMITY: Right lower extremity surgically wrapped. SKIN: Normal color. No rash. NEURO: Awake alert oriented 3. No obvious focal deficit PSYCH: Calm and appropriate. No agitation. Albuterol Sulfate [Albuterol Inhaler] 2 puff IH Q4H PRN 04/22/16 [History] Aspirin 81 mg PO DAILY 04/22/16 [History] Cetirizine HCl [Zyrtec] 10 mg PO DAILY 04/22/16 [History] Insulin ASPART [Novolog Flexpen] 25 - 30 unit SQ TIDWM 04/22/16 [History] Insulin Glargine,Hum.rec.anlog [Lantus Solostar] 65 unit SQ HS 04/22/16 [History] Rosuvastatin Calcium [Crestor] 10 mg PO QPM 04/22/16 [History] Allergy/AdvReac Type Severity Reaction Status Date / Time latex AdvReac Blister Verified 11/07/17 08:53 tape AdvReac Blister Uncoded 11/07/17 08:53 topical antibiotics AdvReac Blister Uncoded 11/07/17 08:53 - Assessment and Plan (1) Sepsis Current Visit: Yes Status: Acute Likely secondary to osteomyelitis right great toe with MSSA bacteremia SNOMED Code(s): 74915055 (2) MSSA bacteremia Current Visit: Yes Status: Acute 1/2 sets positive 03/22/2019 Likely source right foot cellulitis/osteomyelitis Patient denies having any hardware Physical exam negative for endocarditis stigmata (murmur, back tenderness, [place] lesion/ulcer nodes) At this point patient will need a TTE prior to discharge. Repeat blood cultures, if continues to be negative then we will place a midline to treat with cefazolin. Duration of treatment depends on the TTE findings Monitor labs and for drug toxicity SNOMED Code(s): 743652141 (3) Osteomyelitis of great toe of right foot Current Visit: Yes Status: Acute Status post incision and drainage below fascia right first toe and right first toe amputation 03/23/[address] Benjamin who believes that he went significantly proximal to the infected bone and he feels that he got all the infection. He recommended oral antibiotics. Await Intra-Op cultures but high index of suspicion for MSSA but also could be polymicrobial. So I will not de-escalate the antibiotics yet. Patient needs adequate glucose control and tobacco cessation for that better healing SNOMED Code(s): 125194301, 357765726, [id number] (4) Tobacco abuse Current Visit: Yes Status: Acute SNOMED Code(s): 603320595 (5) Diabetes type 2, uncontrolled Current Visit: Yes Status: Acute Qualifiers: Glycemic state: with hyperglycemia Qualified Code(s): E11.65 - Type 2 diabetes mellitus with hyperglycemia SNOMED Code(s): 351049859, 927715173 Past Med Surg Social Fam HX - Past Medical History Medical history: asthma, diabetes, hyperlipidemia, hypertension, myocardial infarction, seizures Additional medical history: ONE SEIZURE 10 YEARS AGO RELATED TO LOW BLOOD SUGAR - DOES NOT TAKE SEIZURE MEDICATION Psychiatric history: anxiety, bipolar, depression - Past Surgical History Surgical History: appendectomy, cholecystectomy Additional surgical history: bilat. shoulder surgeries, elbow surgery - Social History Smoking Status: Current every day smoker Packs per day: 1 Smokeless Tobacco Status: No Alcohol use: none Drug use: none Consult Discharge Plan - Plan Referrals: Andry Flores MD [Primary Care Provider] -
[2019-03-24] MEDS: *HR* Heparin 5,000 UNIT/ML VIAL SQ SCH ×2 (15:20→21:39)
[2019-03-24] MEDS: Insulin DETEMIR 100 UNIT/ML X5UNITS SQ SCH (21:38)
[2019-03-24] MEDS: Acetaminophen 325 MG TABLET PO PRN (21:38)
[2019-03-25] MEDS: Piperacillin/Tazobactam 3.375 GM in 0.9 % Sodium Chloride Mini Bag 100 ML IVPB SCH ×4 (00:12→23:35)
[2019-03-25] MEDS: Acetaminophen 325 MG TABLET PO PRN ×2 (05:30→21:41)
[2019-03-25] MEDS: *HR* Heparin 5,000 UNIT/ML VIAL SQ SCH ×3 (05:30→21:42)
[2019-03-25] MEDS: Insulin LISPRO 300 UNITS/3 ML VIAL SQ SCH ×3 (07:29→17:47)
--- NOTE | 2019-03-25 07:57 | Internal Med Progress Note ---
Hospitalist Progress Note - Encounter Date of Encounter: 03/25/19 Time of Encounter: 07:54 - Subjective Interval History: No acute events. Patient feels well. Status post right first toe partial amputation due to osteitis. Had 1/2 + bld cultures yesterday. Wound cx +for MSSA. ID is consulted now. Remains on IV Vancomycin and Zosyn. Afebrile - Exam Vitals: Temp Pulse Resp BP Pulse Ox 97.9 F 63 15 106/67 98 03/25/19 06:24 03/25/19 06:24 03/25/19 06:24 03/25/19 06:24 03/25/19 06:24 Exam: GEN: NAD CVS: RRR. S1, S2, No m/r/g RESP: CTAB ABD: Soft, NT, ND, +BS EXT: No edema. 2+ DP. No rashes. Right lower extremity is wrapped the foot. NEURO: Nonfocal - Assessment and Plan (1) Osteomyelitis Current Visit: Yes Status: Acute Assessment and Plan: Status post partial right first amputation. Continues on IV antibiotics with IV vancomycin and Zosyn. ID consulted and will manage abx. We will follow up on final cultures. (2) MSSA bacteremia Current Visit: Yes Status: Acute Assessment and Plan: 1 of 2 bottles. Repeat bld cx negative to date. Likely from osteo. on vancomycin and zosyn per ID for now. Abx per them. TTE pending (3) Diabetes type 2, uncontrolled Current Visit: Yes Status: Acute Assessment and Plan: Increased Levemir yesterday afternoon after glucose were noted in the 300s. This morning glucose is 104. Continue Levemir 40 units daily at bedtime. Will see what her glycemic control is like today and adjust as needed. She takes 65 units at night at home. c/w sliding scale insulin. Continue Accu-Cheks (4) HLD (hyperlipidemia) Current Visit: Yes Status: Acute Assessment and Plan: Continue home meds (5) Essential hypertension Current Visit: Yes Status: Acute Assessment and Plan: Continue home meds (6) DVT prophylaxis Current Visit: Yes Status: Acute Assessment and Plan: Heparin subcutaneous - Time Spent with Patient Total time spent is greater than 50% in coordination of care (as documented) at patient's floor/unit and/or counseling patient: Internal Medicine: Result - Labs CBC & Chem 7: 03/23/19 03:24 03/23/19 03:24 Consult Discharge Plan - Plan Referrals: Sandra,Andry Newby MD [Primary Care Provider] - (1) Osteomyelitis Qualifiers: Qualified Code(s): M86.9 - Osteomyelitis, unspecified (3) Diabetes type 2, uncontrolled Qualifiers: Glycemic state: with hyperglycemia Qualified Code(s): E11.65 - Type 2 diabetes mellitus with hyperglycemia (4) HLD (hyperlipidemia) Qualifiers: Qualified Code(s): E78.5 - Hyperlipidemia, unspecified
[2019-03-25] MEDS: Aspirin 81 MG TAB.CHEW PO SCH (08:29)
[2019-03-25] MEDS: Loratadine 10 MG TABLET PO SCH (08:29)
[2019-03-25 08:54] LABS: Basophils % 0.6 %; Eosinophils # 0.1 K/mcL (0.0-0.6); Eosinophils % 1.3 %; Hematocrit 32.8 % (35.3-44.9); Hemoglobin 10.3 g/dL (11.5-15.4); Immature Granulocytes % 0.1 % (0-4); Lymphocytes # 3.8 K/mcL (0.6-4.6); Lymphocytes % 53.6 %; Mean Corpuscular HGB Conc 31.4 g/dL (31.6-35.5); Mean Corpuscular Hemoglobin 29.8 pg (28.0-33.3); Mean Corpuscular Volume 94.8 fL (83.0-100.0); Monocytes # 0.4 K/mcL (0.0-1.3); Neutrophils # 2.8 K/mcL (1.6-8.9); Platelet Count 310 K/mcL (140-400); Red Blood Count 3.46 M/mcL (3.82-4.97); Red Cell Distribution Width 12.4 % (11.5-14.5); Segmented Neutrophils % 39.4 %
[2019-03-25 08:57] LABS: BUN/Creatinine Ratio 22 (6-26); Blood Urea Nitrogen 16 mg/dL (6-20); Calcium 8.9 mg/dL (8.6-10.3); Carbon Dioxide 28 mEq/L (23-29); Chloride 105 mEq/L (98-107); Glucose 85 mg/dL (70-105); Osmolality,Calculated 288 (280-300); Potassium 3.5 mEq/L (3.5-5.1); Sodium 139 mEq/L (136-145); eGFR For Non-African Americans > 60 (> 60)
--- NOTE | 2019-03-25 10:29 | Podiatry Progress Note ---
Date of Encounter: 03/25/19 Time of Encounter: 10:24 - Assessment and Plan (1) MSSA bacteremia Current Visit: Yes Status: Acute 1. Continue IV antibiotics per ID recommendation. If repeat cultures are +, will do repeat I&D. (2) Osteomyelitis of great toe of right foot Current Visit: Yes Status: Acute 1. Patient progressing well POD 2. There is still mild cellulitis, but is improved. Continue IV antibiotics per ID. Will consider repeat I&D with partial 1st ray amputation if bacteremia is not cleared by repeat culture. Follow up bone and soft tissue cultures. Remaining soft tissue after amputation did appear viable and healthy. WBAT with heel touch. Dispense surgical shoe. 2. Wound painted with betadine and covered with dry dressing. Podiatry to manage. Subjective Principal diagnosis: s/p I&D with toe amputation Interval history: Patient progressing well POD 2 s/p I&D right 1st toe with partial 1st toe am putation. Repeat blood cultures pending after initial cultures +staph aureus. This was also grown at 1st toe wound. Anaerobe cultures pending. She denies pain in the toe or calf pain. She has been WBAT with heel touch. She denies n/v/f/c. Objective - Vital Signs Vital Signs: Vital Signs Temp Pulse Resp BP Pulse Ox 03/25/19 06:24 97.9 F 63 15 106/67 98 03/25/19 04:04 97.7 F 66 14 112/65 98 03/24/19 23:23 98.6 F 65 14 93/60 97 03/24/19 21:29 97/56 03/24/19 18:53 98.1 F 69 14 94/58 97 03/24/19 16:31 98.3 F 66 16 110/61 96 03/24/19 10:28 97.7 F 74 18 104/48 95 Intake and Output 03/24/19 03/25/19 03/25/19 23:59 07:59 15:59 Intake Total 1030 / 2820 300 / 420 120 / 420 Output Total 0 / 500 500 / 500 Balance 1030 / 2820 300 / -80 -380 / -80 Intake: IV Fluids 350 / 900 100 / 100 Zosyn 3.375 GM In 0.9 % Sodium 100 / 300 100 / 100 Chloride (Mini-Bag +) 100 ML @ 25 mls/hr IVPB Q8HR [facility] Rx#: [id number] Vancocin 1,500 MG In 0.9 % 250 / 250 Sodium Chloride 250 ML @ 166.67 mls/hr IVPB Q12H JAIME Rx#: [id number] Oral 680 / 1920 200 / 320 120 / 320 Output: Urine 0 / 500 500 / 500 Other: Meal Dinner Breakfast Percent of Meal Consumed 100% 100% # Voids 1 1 Blood Glucose* 188 104 - Exam Exam: Alert, oriented x3, no acute distress. Vascular: DP and PT palpable. Capillary refill brisk to remaining digits and to right 1st toe amputation stump. Dermatology: Right 1st toe amputation site surgical incision well coapted with sutures intact. Mild erythema to dorsal toe, improved. No drainage. Musculoskeletal: No pain with compression of calf. Able to move right 1st toe stump. Neuro: Sensations intact to light touch bilateral lower extremity. - Lab Result Diagrams: 03/25/19 08:12 03/25/19 08:12 Labs: Abnormal lab results RBC 3.46 M/mcL (3.82-4.97) L 03/25/19 08:12 Hgb 10.3 g/dL (11.5-15.4) L 03/25/19 08:12 Hct 32.8 % (35.3-44.9) L 03/25/19 08:12 MCHC 31.4 g/dL (31.6-35.5) L 03/25/19 08:12 ESR >= 130 mm/hr (0-15) H 03/22/19 15:05 Chloride 110 mEq/L (98-107) H 03/23/19 03:24 Glucose 301 mg/dL (70-105) H 03/22/19 15:05 POC Glucose 337 mg/dL (70-99) H 03/24/19 16:15 11.6 % (-5.6) H 03/22/19 15:18 Calcium 8.4 mg/dL (8.6-10.3) L 03/23/19 03:24 AST 10 Units/L (13-39) L 03/23/19 03:24 154 mg/L (Less than 10) H 03/22/19 15:05 3.2 g/dL (3.5-5.7) L 03/23/19 03:24 3.6 g/dL (2.4-3.5) H 03/23/19 03:24 0.9 (1.1-2.2) L 03/23/19 03:24 Ur Specific [place] > 1.030 (1.010-1.025) H 03/22/19 14:47 >=1000 mg/dL (Normal) H 03/22/19 14:47 Staphylococcus sp PCR DETECTED (Not Detect) A 03/22/19 15:05 Staph aureus (PCR) DETECTED (Not Detect) A 03/22/19 15:05 Microbiology, Last 48 Hours 03/22/19 15:05 Blood Culture - Final Peripheral Venipuncture Staphylococcus aureus 03/23/19 10:40 Wound Culture - Preliminary Right Great Toe Staphylococcus aureus 03/23/19 16:34 Wound Culture - Preliminary Surgery Gram Positive Cocci 03/25/19 06:16 Blood Culture - Preliminary Peripheral Venipuncture Culture is incubating and being continuously monitored for growth. Final report to follow. 03/25/19 06:10 Blood Culture - Preliminary Peripheral Venipuncture Culture is incubating and being continuously monitored for growth. Final report to follow. 03/24/19 14:37 Blood Culture - Preliminary Peripheral Venipuncture Culture is incubating and being continuously monitored for growth. Final report to follow. 03/24/19 14:37 Blood Culture - Preliminary Peripheral Venipuncture Culture is incubating and being continuously isidra tored for growth. Final report to follow. 03/23/19 16:34 Fungal Culture - Preliminary Surgery Culture is incubating. 03/23/19 18:40 Fungal Culture - Preliminary Surgery Culture is incubating. 03/23/19 16:34 Anaerobic Culture - Preliminary Surgery Culture is incubating. 03/23/19 10:40 Anaerobic Culture - Preliminary Right Great Toe Culture is incubating. Consult Discharge Plan - Plan Referrals: Ucget,Andry Newby MD [Primary Care Provider] -
[2019-03-25] MEDS: traMADol 50 MG TABLET PO PRN (10:41)
[2019-03-25] MEDS: Nicotine 2 MG GUM BC PRN (12:30)
[2019-03-25] MEDS: Insulin DETEMIR 100 UNIT/ML X5UNITS SQ SCH (21:41)
[2019-03-26 01:17] LABS: Basophils # 0.1 K/mcL (0.0-0.2); Basophils % 1.2 %; Eosinophils # 0.1 K/mcL (0.0-0.6); Eosinophils % 2.3 %; Hematocrit 32.6 % (35.3-44.9); Hemoglobin 10.2 g/dL (11.5-15.4); Immature Granulocytes % 0.2 % (0-4); Lymphocytes # 2.8 K/mcL (0.6-4.6); Lymphocytes % 48.5 %; Mean Corpuscular HGB Conc 31.3 g/dL (31.6-35.5); Mean Corpuscular Hemoglobin 29.7 pg (28.0-33.3); Mean Platelet Volume 9.9 fL (9.4-12.4); Monocytes # 0.3 K/mcL (0.0-1.3); Monocytes % 5.9 %; Neutrophils # 2.4 K/mcL (1.6-8.9); Platelet Count 266 K/mcL (140-400); Red Blood Count 3.43 M/mcL (3.82-4.97); Red Cell Distribution Width 12.4 % (11.5-14.5); Segmented Neutrophils % 41.9 %
[2019-03-26 01:36] LABS: BUN/Creatinine Ratio 20 (6-26); Blood Urea Nitrogen 17 mg/dL (6-20); Calcium 8.8 mg/dL (8.6-10.3); Carbon Dioxide 28 mEq/L (23-29); Chloride 103 mEq/L (98-107); Glucose 291 mg/dL (70-105); Magnesium 1.8 mg/dL (1.6-2.6); Osmolality,Calculated 294 (280-300); Potassium 4.2 mEq/L (3.5-5.1); Sodium 136 mEq/L (136-145); eGFR For Non-African Americans > 60 (> 60)
[2019-03-26] MEDS: *HR* Heparin 5,000 UNIT/ML VIAL SQ SCH ×3 (05:02→21:11)
[2019-03-26] MEDS: Insulin LISPRO 300 UNITS/3 ML VIAL SQ SCH ×3 (10:26→18:08)
[2019-03-26] MEDS: Piperacillin/Tazobactam 3.375 GM in 0.9 % Sodium Chloride Mini Bag 100 ML IVPB SCH ×3 (10:40→23:09)
[2019-03-26] MEDS: Loratadine 10 MG TABLET PO SCH (10:42)
[2019-03-26] MEDS: Aspirin 81 MG TAB.CHEW PO SCH (10:42)
--- NOTE | 2019-03-26 11:18 | Internal Med Progress Note ---
Hospitalist Progress Note - Encounter Date of Encounter: 03/26/19 Time of Encounter: 09:30 - Subjective Interval History: No acute events overnight. No fever/chills. Expected post-op discomfort on R 1st toe. - Exam Vitals: Temp Pulse Resp BP Pulse Ox 98.4 F 62 15 116/71 93 03/26/19 10:14 03/26/19 10:14 03/26/19 10:14 03/26/19 10:14 03/26/19 10:14 Exam: GEN: NAD CVS: RRR. S1, S2, No m/r/g RESP: CTAB ABD: Soft, NT, ND, +BS EXT: No edema. 2+ DP. No rashes. Right lower extremity dressing c/d/i NEURO: Nonfocal - Assessment and Plan (1) Osteomyelitis Current Visit: Yes Status: Acute Assessment and Plan: Status post partial right first toe amputation on 03/23. Culture growing MSSA in both wound and blood On IV Vanc/zosyn, appreciate ID consult. Although wound culture grew MSSA, it could also be polymicrobial so will continue the current abx for now (2) MSSA bacteremia Current Visit: Yes Status: Acute Assessment and Plan: 1 of 2 bottles from 03/22. Repeat bld cx on 03/24 and 03/25 negative to date. Likely from osteo, TTE -ve for vegetation appreciate ID input (3) Diabetes type 2, uncontrolled Current Visit: Yes Status: Chronic Assessment and Plan: Continue Levemir 40 units daily at bedtime with medium dose sliding scale insulin (4) HLD (hyperlipidemia) Current Visit: No Status: Chronic Assessment and Plan: Continue home meds (5) Essential hypertension Current Visit: No Status: Chronic Assessment and Plan: Continue home meds (6) DVT prophylaxis Current Visit: Yes Status: Acute Assessment and Plan: Heparin subcutaneous - Time Spent with Patient Total time spent is greater than 50% in coordination of care (as documented) at patient's floor/unit and/or counseling patient: 25 - 35 minutes Plan of Care Discussed with: patient Internal Medicine: Result - Labs CBC & Chem 7: 03/26/19 01:05 03/26/19 01:05 Labs: Short CBC 03/26/19 Range/Units 01:05 WBC 5.7 (4.3-11.1) K/mcL Hgb 10.2 L (11.5-15.4) g/dL Hct 32.6 L (35.3-44.9) % Plt Count 266 (140-400) K/mcL Neutrophils # 2.4 (1.6-8.9) K/mcL BMP 03/26/19 01:05 Sodium 136 Potassium 4.2 Chloride 103 Carbon Dioxide 28 BUN 17 Creatinine 0.84 Glucose 291 H Calcium 8.8 Consult Discharge Plan - Plan Referrals: Sandra,Andry Newby MD [Primary Care Provider] - ___ (1) Osteomyelitis Qualifiers: Osteomyelitis type: other acute Osteomyelitis location: foot Laterality: right Qualified Code(s): M86.171 - Other acute osteomyelitis, right ankle and foot (3) Diabetes type 2, uncontrolled Qualifiers: Glycemic state: with hyperglycemia Qualified Code(s): E11.65 - Type 2 diabetes mellitus with hyperglycemia (4) HLD (hyperlipidemia) Qualifiers: Qualified Code(s): E78.5 - Hyperlipidemia, unspecified
[2019-03-26] MEDS: traMADol 50 MG TABLET PO PRN (16:13)
[2019-03-26] MEDS: Insulin DETEMIR 100 UNIT/ML X5UNITS SQ SCH (21:11)
[2019-03-27 03:28] LABS: Basophils # 0.1 K/mcL (0.0-0.2); Eosinophils # 0.2 K/mcL (0.0-0.6); Eosinophils % 1.8 %; Hematocrit 34.7 % (35.3-44.9); Immature Granulocytes % 0.2 % (0-4); Lymphocytes # 2.5 K/mcL (0.6-4.6); Lymphocytes % 29.7 %; Mean Corpuscular HGB Conc 31.7 g/dL (31.6-35.5); Mean Corpuscular Hemoglobin 29.6 pg (28.0-33.3); Mean Corpuscular Volume 93.3 fL (83.0-100.0); Mean Platelet Volume 10.1 fL (9.4-12.4); Monocytes # 0.8 K/mcL (0.0-1.3); Monocytes % 9.3 %; Neutrophils # 4.8 K/mcL (1.6-8.9); Platelet Count 306 K/mcL (140-400); Red Blood Count 3.72 M/mcL (3.82-4.97); Red Cell Distribution Width 12.4 % (11.5-14.5)
[2019-03-27 03:38] LABS: BUN/Creatinine Ratio 21 (6-26); Blood Urea Nitrogen 15 mg/dL (6-20); Calcium 9.1 mg/dL (8.6-10.3); Carbon Dioxide 27 mEq/L (23-29); Chloride 102 mEq/L (98-107); Glucose 239 mg/dL (70-105); Osmolality,Calculated 295 (280-300); Potassium 4.2 mEq/L (3.5-5.1); Sodium 138 mEq/L (136-145); eGFR For Non-African Americans > 60 (> 60)
[2019-03-27] MEDS: *HR* Heparin 5,000 UNIT/ML VIAL SQ SCH ×3 (05:17→21:53)
[2019-03-27] MEDS ORDERED: Aminoglycoside Consult 1 EACH MC ONE (08:09)
[2019-03-27] MEDS: Loratadine 10 MG TABLET PO SCH (08:50)
[2019-03-27] MEDS: Aspirin 81 MG TAB.CHEW PO SCH (08:50)
[2019-03-27] MEDS: Piperacillin/Tazobactam 3.375 GM in 0.9 % Sodium Chloride Mini Bag 100 ML IVPB SCH (08:52)
[2019-03-27] MEDS: Insulin LISPRO 300 UNITS/3 ML VIAL SQ SCH ×5 (08:53→17:37)
--- NOTE | 2019-03-27 10:50 | Internal Med Progress Note ---
Hospitalist Progress Note - Encounter Date of Encounter: 03/27/19 Time of Encounter: 09:00 - Subjective Interval History: No acute events overnight. Right foot discomfort is also improving. No fever/chills or nausea/vomiting. - Exam Vitals: Temp Pulse Resp BP Pulse Ox 98.7 F 61 15 117/70 95 03/27/19 04:22 03/27/19 04:22 03/27/19 04:22 03/27/19 04:22 03/27/19 04:22 Exam: GEN: NAD CVS: RRR. S1, S2, No m/r/g RESP: CTAB ABD: Soft, NT, ND, +BS EXT: No edema. 2+ DP. No rashes. Right lower extremity dressing c/d/i NEURO: Nonfocal - Assessment and Plan (1) Osteomyelitis Current Visit: Yes Status: Acute Assessment and Plan: Status post partial right first toe amputation on 03/23. Culture growing MSSA in both wound and blood. Repeat blood cultures 03/24 and 03/25 -ve to date On IV Vanc/zosyn which are being continued for possibly being polymicrobial inf ection, appreciate ID consult. Pathology report pending (2) MSSA bacteremia Current Visit: Yes Status: Acute Assessment and Plan: 1 of 2 bottles from 03/22. Repeat bld cx on 03/24 and 03/25 negative to date. Likely from osteo, TTE -ve for vegetation appreciate ID input (3) Diabetes type 2, uncontrolled Current Visit: Yes Status: Chronic Assessment and Plan: Continue Levemir 40 units daily at bedtime with medium dose sliding scale insulin Will add pre-meal lispro 8 units (4) HLD (hyperlipidemia) Current Visit: No Status: Chronic Assessment and Plan: Continue home meds (5) Essential hypertension Current Visit: No Status: Chronic Assessment and Plan: Continue home meds (6) DVT prophylaxis Current Visit: Yes Status: Acute Assessment and Plan: Heparin subcutaneous - Time Spent with Patient Total time spent is greater than 50% in coordination of care (as documented) at patient's floor/unit and/or counseling patient: 25 - 35 minutes Plan of Care Discussed with: patient Internal Medicine: Result - Labs CBC & Chem 7: 03/27/19 03:00 03/27/19 03:00 Labs: Short CBC 03/27/19 Range/Units 03:00 WBC 8.3 (4.3-11.1) K/mcL Hgb 11.0 L (11.5-15.4) g/dL Hct 34.7 L (35.3-44.9) % Plt Count 306 (140-400) K/mcL Neutrophils # 4.8 (1.6-8.9) K/mcL BMP 03/27/19 03:00 Sodium 138 Potassium 4.2 Chloride 102 Carbon Dioxide 27 BUN 15 Creatinine 0.73 Glucose 239 H Calcium 9.1 Consult Discharge Plan - Plan Referrals: Sandra,Andry Newby MD [Primary Care Provider] - (1) Osteomyelitis Qualifiers: Osteomyelitis type: other acute Osteomyelitis location: foot Laterality: right Qualified Code(s): M86.171 - Other acute osteomyelitis, right ankle and foot (3) Diabetes type 2, uncontrolled Qualifiers: Glycemic state: with hyperglycemia Qualified Code(s): E11.65 - Type 2 diabetes mellitus with hyperglycemia (4) HLD (hyperlipidemia) Qualifiers: Qualified Code(s): E78.5 - Hyperlipidemia, unspecified
--- NOTE | 2019-03-27 11:58 | Infectious Disease Progress No ---
ID Progress Note Date of Encounter: 03/27/19 Time of Encounter: 11:58 - Subjective Subjective: Patient seen and examined. Weekend notes reviewed. No acute events noted. Patient states overall she feels well. Denies fevers, chills, or rigors. Denies chest pain, shortness of breath, or cough. Denies nausea, vomiting, or diarrhea. Reports some constipation. Denies abdominal pain or urinary complaints. Denies pain at the surgical site. Denies oral thrush or skin lesions. - Objective CBC & Chem 7: 03/27/19 03:00 03/27/19 03:00 - Exam Vitals: Temp Pulse Resp BP Pulse Ox 98.7 F 61 15 117/70 95 03/27/19 04:22 03/27/19 04:22 03/27/19 04:22 03/27/19 04:22 03/27/19 04:22 Exam: Head: Atraumatic, normal inspection, normocephalic. Eye: EOMI, PERRLA, no scleral icterus noted. ENT: Mucous membranes moist. No odontogenic infection noted. No subconjunctival hemorrhage noted. Neck: Normal inspection, no meningismus. Respiratory: Clear to auscultation. No rales, respiratory distress, rhonchi, or wheezes noted. Cardiovascular: Regular rate and rhythm, S1 and S2 audible. No murmurs, rubs, or gallops. GI: Soft, nondistended, normal bowel sounds. Extremities: No joint swelling, pedal edema, or tenderness noted. Surgical site noted to the right distal toe with sutures intact and wound edges well- approximated. No erythema, warmth, drainage, or fluctuance noted. Back: Normal inspection. No vertebral tenderness noted. Neurological: Alert, oriented 3, no focal deficits. Psychiatric: normal affect, normal mood. Skin: Dry, intact, warm. Normal color. No rashes. No endocarditis stigmata noted. - Assessment and Plan (1) Sepsis Current Visit: Yes Status: Acute The patient had 2 sepsis criteria on admission. Likely secondary to MSSA bacteremia and osteomyelitis. Improved. Afebrile. Tachycardia resolved. Blood cultures drawn 03/22/19 are +1 out of 2 sets were positive for MSSA. Repeat blood cultures drawn 03/24/19 are no growth to date 2 sets. Additional blood cultures drawn 03/25/19 are no growth to date 2 sets. Qualifiers: Sepsis type: methicillin susceptible Staphylococcus aureus Qualified Code(s): A41.01 - Sepsis due to Methicillin susceptible Staphylococcus aureus SNOMED Code(s): 04232482 (2) MSSA bacteremia Current Visit: Yes Status: Acute Causative organism: MSSA Source: likely right great toe infection. Blood cultures drawn 03/22/19 are +1 out of 2 sets were positive for MSSA. Repeat blood cultures drawn 03/24/19 are no growth to date 2 sets. Additional blood cultures drawn 03/25/19 are no growth to date 2 sets. Also located due to the presence of osteomyelitis. No endocarditis stigmata noted on exam. TTE negative for valvular vegetations. The patient has one major and one minor modified Benson criteria. Currently on vancomycin and Zosyn. SNOMED Code(s): 941707132 (3) Osteomyelitis of great toe of right foot Current Visit: Yes Status: Acute Location: Right great toe. Causative organism: MSSA. Preop ESR greater than 130, CRP 154. Status post incision and drainage below fascia right first toe and right first toe amputation 03/23/2019. Dr. Benjamin believes that he went significantly proximal to the infected bone and he feels that he got all the infection. He recommended oral antibiotics. Pathology pending. Cultures as above. Currently on Vanc and Zosyn. SNOMED Code(s): 951343849, 448929840, [id number] (4) Cellulitis of great toe, right Current Visit: Yes Status: Acute Location: Right great toe. Causative organism: MSSA. Secondary to right great toe ulcer. Podiatry consulted. States post partial amputation. Currently on Vanc and Zosyn. SNOMED Code(s): 11464333 (5) Ulcer of right great toe due to diabetes mellitus Current Visit: Yes Status: Acute SNOMED Code(s): 71991091 (6) Diabetes type 2, uncontrolled Current Visit: Yes Status: Chronic Recommend aggressive glucose monitoring and control to promote wound healing and prevent re-infection. Management per the primary team. Qualifiers: Glycemic state: with hyperglycemia Qualified Code(s): E11.65 - Type 2 diabetes mellitus with hyperglycemia SNOMED Code(s): 578844035, 048408468 (7) HLD (hyperlipidemia) Current Visit: No Status: Chronic Qualifiers: Qualified Code(s): E78.5 - Hyperlipidemia, unspecified SNOMED Code(s): 71399396 (8) Tobacco abuse Current Visit: Yes Status: Acute SNOMED Code(s): 939091798 - Recommendations Recommendations: Await repeat blood cultures to finalize. Wound care and activity per the Podiatry team. FRANCO prior to discharge. Discontinue Vanc and Zosyn. Start cefazolin 2 grams IV Q8H. Start flagyl 500mg PO TID until anaerobic cultures finalize. Duration of treatment depends on the clinical picture, but likely 14 days from t he first set of negative blood cultures since Podiatry thinks all of the infected bone was removed. Monitor renal function and dose-adjust antibiotics. Consult Discharge Plan - Plan Referrals: Andry Flores MD [Primary Care Provider] - - Attending Attestation I have personally performed a face to face evaluation on this patient. I have reviewed and agree with the care plan. History and Exam by me shows: Assessment and plan: 1.Sepsis 2.Osteomyelitis of the great toe of the right foot status post amputation. All infected digit have been removed per podiatry 3.MSSA bacteremia FRANCO pending 4.Diabetes mellitus type 2 5.Hyperlipidemia Recommendations Await FRANCO Continue cefazolin and Flagyl for now Duration of treatment depends on the FRANCO results. If FRANCO is negative then we will treat through 04/08/2019
--- NOTE | 2019-03-27 13:24 | Podiatry Progress Note ---
Date of Encounter: 03/27/19 Time of Encounter: 11:00 - Assessment and Plan (1) Cellulitis Current Visit: Yes Status: Acute ID on board Recommend 6 weeks IV antibiotic therapy Awaiting final blood cultures to determine course of treatment. Minimal cellulitis noted, regression of erythema of toe and to dorsal aspect of right foot. Qualifiers: Site of cellulitis: extremity Site of cellulitis of extremity: lower extremity Laterality: right Qualified Code(s): L03.115 - Cellulitis of right lower limb (2) Cellulitis of great toe, right Current Visit: Yes Status: Acute (3) Osteomyelitis of great toe of right foot Current Visit: Yes Status: Acute s/p 1. Incision and drainage below fascia right 1st toe 2. Right 1st toe amputation Healing well and without complication Removed dressing, cleansed with saline, painted with betadine, adaptic, 4x4 and kerlix applied Patient + for SA in both surgical culture and blood culture ID recommending 6 weeks of IV antibiotic therapy Currently on vancomycin and zosyn. WBC today 8.3 Will undergo FRANCO per ID to rule out vegetation May be discharged once BC result and patient has IV antibiotic set up at home Once discharged dressing may stay in place Will need to be seen in clinic per 1 week after discharge Discharge with post operative shoe, weight bearing to heel only. Patient aware and verbalizes understanding Subjective Principal diagnosis: s/p I&D with toe amputation Interval history: s/p 1. Incision and drainage below fascia right 1st toe 2. Right 1st toe amputation Patient resting comfortably. Patient states pain is now minimal. Denies any fevers, chills, n/v or fls. Denies any trauma. Objective - Vital Signs Vital Signs: Vital Signs Temp Pulse Resp BP Pulse Ox 03/27/19 11:55 98.8 F 67 18 104/63 96 03/27/19 04:22 98.7 F 61 15 117/70 95 03/27/19 00:24 98.6 F 74 18 149/66 99 03/26/19 20:26 99.2 F 67 16 100/58 95 03/26/19 14:29 98.7 F 71 16 110/65 95 Intake and Output 03/26/19 03/27/19 03/27/19 23:59 07:59 15:59 Intake Total 830 / 2250 900 / 1380 480 / 1380 Output Total 250 / 250 Balance 830 / 1350 650 / 1130 480 / 1130 Intake: IV Fluids 350 / 1050 100 / 100 Zosyn 3.375 GM In 0.9 % Sodium 100 / 300 100 / 100 Chloride (Mini-Bag +) 100 ML @ 25 mls/hr IVPB Q8HR [facility] Rx#: [id number] Vancocin 1,500 MG In 0.9 % 250 / 750 Sodium Chloride 250 ML @ 166.67 mls/hr IVPB Q12H JA[facility] Rx#: [id number] Oral 480 / 1200 800 / 1280 480 / 1280 Output: Urine 250 / 250 Other: Meal Dinner Lunch Percent of Meal Consumed 100% 80% Stool Size Small Stool Consistency formed Stool Characteristics Normal for Patient Stool Color Brown # Voids 1 # Bowel Movements 1 Weight 48.8 kg Blood Glucose* 317 286 Patient Weight 03/27/19 23:59 Weight 48.8 kg - Exam Exam: Podiatry General Exam: General appearance: alert awake oriented X 3. Calm and pleasant, no acute distress.. Vascular: Pedal pulses +2/4 DP/PT , No evidence of cyanosis, pallor or rubor, Edema graded at 1+/4, Skin Temperature warm, No calf pain with manual compression. capillary refill time is immediate to digits. Neurologic: Sensation intact with light touch to foot. . Postop Exam: S/P Sutures intact to incision line, no signs of dehiscence. No open area, no drainage, no odor, minimal erythema only surrounding surgical line, regressed since initial assessment, no streaking. Minimal edema. - Lab Result Diagrams: 03/27/19 03:00 03/27/19 03:00 Labs: Abnormal lab results RBC 3.72 M/mcL (3.82-4.97) L 03/27/19 03:00 Hgb 11.0 g/dL (11.5-15.4) L 03/27/19 03:00 Hct 34.7 % (35.3-44.9) L 03/27/19 03:00 MCHC 31.3 g/dL (31.6-35.5) L 03/26/19 01:05 ESR 67 mm/hr (0-15) H 03/26/19 06:26 Chloride 110 mEq/L (98-107) H 03/23/19 03:24 Glucose 239 mg/dL (70-105) H 03/27/19 03:00 POC Glucose 140 mg/dL (70-99) H 03/27/19 08:36 11.6 % (-5.6) H 03/22/19 15:18 Calcium 8.4 mg/dL (8.6-10.3) L 03/23/19 03:24 AST 10 Units/L (13-39) L 03/23/19 03:24 25 mg/L (Less than 10) H 03/26/19 06:26 3.2 g/dL (3.5-5.7) L 03/23/19 03:24 3.6 g/dL (2.4-3.5) H 03/23/19 03:24 0.9 (1.1-2.2) L 03/23/19 03:24 Ur Specific [place] > 1.030 (1.010-1.025) H 03/22/19 14:47 >=1000 mg/dL (Normal) H 03/22/19 14:47 Vancomycin Trough 15 mcg/mL (5-10) H 03/25/19 20:07 Staphylococcus sp PCR DETECTED (Not Detect) A 03/22/19 15:05 Staph aureus (PCR) DETECTED (Not Detect) A 03/22/19 15:05 Microbiology, Last 48 Hours 03/23/19 16:34 Anaerobic Culture - Preliminary Surgery At this time, no anaerobic growth is present. The culture will be finalized after 5 days of incubation. 03/23/19 10:40 Anaerobic Culture - Preliminary Right Great Toe At this time, no anaerobic growth is present. The culture will be finalized after 5 days of incubation. 03/23/19 10:40 Wound Culture - Final Right Great Toe Staphylococcus aureus 03/23/19 16:34 Wound Culture - Final Surgery Staphylococcus aureus 03/23/19 16:34 Acid Fast Stain - Final Surgery 03/23/19 18:40 Acid Fast Stain - Final Surgery 03/22/19 15:05 Blood Culture - Final Peripheral Venipuncture Staphylococcus aureus Consult Discharge Plan - Plan Referrals: Ucget,Andry Newby MD [Primary Care Provider] -
[2019-03-27] MEDS: metroNIDAZOLE 500 MG TABLET PO SCH ×2 (17:02→21:54)
[2019-03-27] MEDS: ceFAZolin 2,000 MG in 0.9 % Sodium Chloride 100 ML IVPB SCH (17:37)
[2019-03-27] MEDS: Insulin DETEMIR 100 UNIT/ML X5UNITS SQ SCH (21:54)
[2019-03-27] MEDS: traMADol 50 MG TABLET PO PRN (21:59)
[2019-03-28] MEDS: ceFAZolin 2,000 MG in 0.9 % Sodium Chloride 100 ML IVPB SCH ×3 (00:28→17:59)
[2019-03-28] MEDS: *HR* Heparin 5,000 UNIT/ML VIAL SQ SCH ×3 (05:21→21:48)
[2019-03-28] MEDS: Insulin LISPRO 300 UNITS/3 ML VIAL SQ SCH ×6 (11:32→17:57)
[2019-03-28] MEDS: Loratadine 10 MG TABLET PO SCH (12:11)
[2019-03-28] MEDS: metroNIDAZOLE 500 MG TABLET PO SCH ×3 (12:11→21:48)
[2019-03-28] MEDS: Aspirin 81 MG TAB.CHEW PO SCH (12:11)
--- NOTE | 2019-03-28 13:24 | Infectious Disease Progress No ---
ID Progress Note Date of Encounter: 03/28/19 Time of Encounter: 13:22 - Subjective Subjective: Patient seen and examined. No acute events noted. Patient states overall she feels well. Denies fevers, chills, or rigors. Denies chest pain, shortness of breath, or cough. Denies nausea, vomiting, or diarrhea, or constipation. Denies abdominal pain or urinary complaints. Reports minimal pain at the surgical site. Denies oral thrush or skin lesions. - Objective CBC & Chem 7: 03/27/19 03:00 03/27/19 03:00 - Exam Vitals: Temp Pulse Resp BP Pulse Ox 97.8 F 84 16 169/59 97 03/28/19 10:58 03/28/19 10:58 03/28/19 10:58 03/28/19 10:58 03/28/19 10:58 Exam: Head: Atraumatic, normal inspection, normocephalic. Eye: EOMI, PERRLA, no scleral icterus noted. ENT: Mucous membranes moist. No odontogenic infection noted. No subconjunctival hemorrhage noted. Neck: Normal inspection, no meningismus. Respiratory: Clear to auscultation. No rales, respiratory distress, rhonchi, or wheezes noted. Cardiovascular: Regular rate and rhythm, S1 and S2 audible. No murmurs, rubs, or gallops. GI: Soft, nondistended, normal bowel sounds. Extremities: No joint swelling, pedal edema, or tenderness noted. Right foot dressing C/d/I. Back: Normal inspection. No vertebral tenderness noted. Neurological: Alert, oriented 3, no focal deficits. Psychiatric: normal affect, normal mood. Skin: Dry, intact, warm. Normal color. No rashes. No endocarditis stigmata not ed. - Assessment and Plan (1) Sepsis Current Visit: Yes Status: Acute The patient had 2 sepsis criteria on admission. Likely secondary to MSSA bacteremia and osteomyelitis. Improved. Afebrile. Tachycardia resolved. Blood cultures drawn 03/22/19 are +1 out of 2 sets were positive for MSSA. Repeat blood cultures drawn 03/24/19 are no growth to date 2 sets. Additional blood cultures drawn 03/25/19 are no growth to date 2 sets. Qualifiers: Sepsis type: methicillin susceptible Staphylococcus aureus Qualified Code(s): A41.01 - Sepsis due to Methicillin susceptible Staphylococcus aureus SNOMED Code(s): 90077964 (2) MSSA bacteremia Current Visit: Yes Status: Acute Causative organism: MSSA Source: likely right great toe infection. Blood cultures drawn 03/22/19 are +1 out of 2 sets were positive for MSSA. Repeat blood cultures drawn 03/24/19 are no growth to date 2 sets. Additional blood cultures drawn 03/25/19 are no growth to date 2 sets. Also located due to the presence of osteomyelitis. No endocarditis stigmata noted on exam. TTE negative for valvular vegetations. The patient has one major and one minor modified Blair criteria. Currently on cefazolin. SNOMED Code(s): 542224900 (3) Osteomyelitis of great toe of right foot Current Visit: Yes Status: Acute Location: Right great toe. Causative organism: MSSA. Preop ESR greater than 130, CRP 154. Status post incision and drainage below fascia right first toe and right first toe amputation 03/23/2019. Dr. Benjamin believes that he went significantly proximal to the infected bone and he feels that he got all the infection. He recommended oral antibiotics. Pathology pending. Cultures as above. Currently on cefazolin and flagyl. SNOMED Code(s): 712356760, 472445100, 4104183005921426 (4) Cellulitis of great toe, right Current Visit: Yes Status: Acute Location: Right great toe. Causative organism: MSSA. Secondary to right great toe ulcer. Podiatry consulted. States post partial amputation. Currently on cefazolin and flagyl. SNOMED Code(s): 83545910 (5) Ulcer of right great toe due to diabetes mellitus Current Visit: Yes Status: Acute SNOMED Code(s): 05282530 (6) Diabetes type 2, uncontrolled Current Visit: Yes Status: Chronic Recommend aggressive glucose monitoring and control to promote wound healing and prevent re-infection. Management per the primary team. Qualifiers: Glycemic state: with hyperglycemia Qualified Code(s): E11.65 - Type 2 diabetes mellitus with hyperglycemia SNOMED Code(s): 873287174, 958761874 (7) HLD (hyperlipidemia) Current Visit: No Status: Chronic Qualifiers: Qualified Code(s): E78.5 - Hyperlipidemia, unspecified SNOMED Code(s): 78022243 (8) Tobacco abuse Current Visit: Yes Status: Acute SNOMED Code(s): 246013911 - Recommendations Recommendations: Await repeat blood cultures to finalize. Wound care and activity per the Podiatry team. FRANCO prior to discharge. Continue cefazolin 2 grams IV Q8H. Continue flagyl 500mg PO TID until anaerobic cultures finalize. Duration of treatment depends on the clinical picture, but likely 14 days from the first set of negative blood cultures if FRANCO is negative since Podiatry thinks all of the infected bone was removed. Monitor renal function and dose-adjust antibiotics. Consult VAT once final discharge plan made. security services manager to assist with discharge planning. Consult Discharge Plan - Plan Referrals: Andry Flores MD [Primary Care Provider] -
--- NOTE | 2019-03-28 13:27 | Podiatry Progress Note ---
Date of Encounter: 03/28/19 Time of Encounter: 12:00 - Assessment and Plan (1) Cellulitis Current Visit: Yes Status: Acute ID on board Recommending 6 weeks IV antibiotic therapy Awaiting final blood cultures to determine course of treatment. Minimal cellulitis noted, regression of erythema of toe and to dorsal aspect of right foot. Qualifiers: Site of cellulitis: extremity Site of cellulitis of extremity: lower extremity Laterality: right Qualified Code(s): L03.115 - Cellulitis of right lower limb (2) Cellulitis of great toe, right Current Visit: Yes Status: Acute (3) Osteomyelitis of great toe of right foot Current Visit: Yes Status: Acute s/p 1. Incision and drainage below fascia right 1st toe 2. Right 1st toe amputation Healing well and without complication Removed dressing, cleansed with saline, painted with betadine, adaptic, 4x4 and kerlix applied Patient + for SA in both surgical culture and blood culture ID recommending 6 weeks of IV antibiotic therapy Currently on vancomycin and zosyn. WBC today 8.3 Will undergo FRANCO per ID to rule out vegetation May be discharged once BC result and patient has IV antibiotic set up at home Once discharged dressing may stay in place Will need to be seen in clinic per 1 week after discharge Discharge with post operative shoe, weight bearing to heel only. Patient aware and verbalizes understanding Subjective Principal diagnosis: s/p I&D with toe amputation Interval history: s/p 1. Incision and drainage below fascia right 1st toe 2. Right 1st toe amputation Patient resting comfortably. Patient states pain is now minimal. Patient is tearful upon entering room. States she just wants to know what is going on although this was discussed in length yesterday, states she forgot. Denies any fevers, chills, n/v or fls. Denies any trauma. Post operative shoe at bedside. Objective - Vital Signs Vital Signs: Vital Signs Temp Pulse Resp BP Pulse Ox 03/28/19 10:58 97.8 F 84 16 169/59 97 03/28/19 07:26 98.1 F 75 16 140/75 98 03/28/19 03:50 98.0 F 68 14 113/68 95 03/27/19 20:47 99.2 F 70 15 116/68 97 03/27/19 17:01 98.1 F 67 14 110/65 95 Intake and Output 03/27/19 03/28/19 03/28/19 23:59 07:59 15:59 Intake Total 960 / 2340 100 / 100 Output Total 150 / 400 0 / 0 Balance 810 / 1940 100 / 100 Intake: IV Fluids 100 / 200 100 / 100 Ancef 2,000 MG In 0.9 % Sodium 100 / 100 100 / 100 Chloride 100 ML @ 200 mls/hr IVPB Q8HR [facility] Rx#:[id number] Oral 860 / 2140 0 / 0 Output: Urine 150 / 400 0 / 0 Other: Meal Dinner Percent of Meal Consumed 90% # Voids 1 1 # Bowel Movements 1 Blood Glucose* 218 297 - Exam Exam: Podiatry General Exam: General appearance: alert awake oriented X 3. Calm and pleasant, no acute distress.. Vascular: Pedal pulses +2/4 DP/PT , No evidence of cyanosis, pallor or rubor, Edema graded at 1+/4, Skin Temperature warm, No calf pain with manual compression. capillary refill time is immediate to digits. Neurologic: Sensation intact with light touch to foot. . Postop Exam: S/P Sutures intact to incision line, no signs of dehiscence. No open area, no drainage, no odor, minimal erythema only surrounding surgical line, slightly increased from 5/6 exam however patient reports she has been up moving most of the morning. Likely dependent. cellulitis regressed since initial assessment, no streaking. Minimal edema. - Lab Result Diagrams: 03/27/19 03:00 03/27/19 03:00 Labs: Abnormal lab results RBC 3.72 M/mcL (3.82-4.97) L 03/27/19 03:00 Hgb 11.0 g/dL (11.5-15.4) L 03/27/19 03:00 Hct 34.7 % (35.3-44.9) L 03/27/19 03:00 MCHC 31.3 g/dL (31.6-35.5) L 03/26/19 01:05 ESR 67 mm/hr (0-15) H 03/26/19 06:26 Chloride 110 mEq/L (98-107) H 03/23/19 03:24 Glucose 239 mg/dL (70-105) H 03/27/19 03:00 POC Glucose 119 mg/dL (70-99) H 03/27/19 16:47 11.6 % (-5.6) H 03/22/19 15:18 Calcium 8.4 mg/dL (8.6-10.3) L 03/23/19 03:24 AST 10 Units/L (13-39) L 03/23/19 03:24 25 mg/L (Less than 10) H 03/26/19 06:26 3.2 g/dL (3.5-5.7) L 03/23/19 03:24 3.6 g/dL (2.4-3.5) H 03/23/19 03:24 0.9 (1.1-2.2) L 03/23/19 03:24 Ur Specific [place] > 1.030 (1.010-1.025) H 03/22/19 14:47 >=1000 mg/dL (Normal) H 03/22/19 14:47 Vancomycin Trough 15 mcg/mL (5-10) H 03/27/19 20:00 Staphylococcus sp PCR DETECTED (Not Detect) A 03/22/19 15:05 Staph aureus (PCR) DETECTED (Not Detect) A 03/22/19 15:05 Microbiology, Last 48 Hours 03/23/19 18:40 Wound Culture - Preliminary Surgery No growth. 03/22/19 15:07 Blood Culture - Final Peripheral Venipuncture No growth. Final report. 03/23/19 16:34 Anaerobic Culture - Preliminary Surgery At this time, no anaerobic growth is present. The culture will be finalized after 5 days of incubation. 03/23/19 10:40 Anaerobic Culture - Preliminary Right Great Toe At this time, no anaerobic growth is present. The culture will be finalized after 5 days of incubation. Consult Discharge Plan - Plan Referrals: [facility] [place],Andry Newby MD [Primary Care Provider] -
--- NOTE | 2019-03-28 16:34 | Internal Med Progress Note ---
Hospitalist Progress Note - Encounter Date of Encounter: 03/28/19 Time of Encounter: 16:31 - Subjective Interval History: No acute event overnight. Review the lab and center consultant note. Denies fever chills nausea vomiting chest pain shortness of breath abdominal pain diarrhea - Exam Vitals: Temp Pulse Resp BP Pulse Ox 98.6 F 70 16 103/59 96 03/28/19 14:33 03/28/19 14:33 03/28/19 14:33 03/28/19 14:33 03/28/19 14:33 Exam: GEN: NAD CVS: RRR. S1, S2, No m/r/g RESP: CTAB ABD: Soft, NT, ND, +BS EXT: No edema. 2+ DP. No rashes. Right lower extremity dressing c/d/i NEURO: No focal neurological deficit. - Assessment and Plan (1) MSSA bacteremia Current Visit: Yes Status: Acute Assessment and Plan: 1 of 2 bottles from 03/22. Repeat bld cx on 03/24 and 03/25 negative to date. Likely from osteo, TTE -ve for vegetation As per ID note recommendation - Await repeat blood cultures to finalize. Wound care and activity per the Podiatry team. FRANCO prior to discharge. Continue cefazolin 2 grams IV Q8H. Continue flagyl 500mg PO TID until anaerobic cultures finalize. Duration of treatment depends on the clinical picture, but likely 14 days from the first set of negative blood cultures if FRANCO is negative since Podiatry thinks all of the infected bone was removed. Monitor renal function and dose-adjust antibiotics. Consult VAT once final discharge plan made. social services counselor to assist with discharge planning. FRANCO ordered for tomorrow morning. Possible plan to discharge and 1-2 days if FRANCO normal in get cleared by ID (2) Osteomyelitis Current Visit: Yes Status: Acute Assessment and Plan: Status post partial right first toe amputation on 03/23. Culture growing MSSA in both wound and blood. Repeat blood cultures 03/24 and 03/25 -ve to date On IV Vanc/zosyn which are being continued for possibly being polymicrobial infection, appreciate ID consult. Pathology report pending Strategic Account Executive's on board (3) Diabetes type 2, uncontrolled Current Visit: Yes Status: Chronic Assessment and Plan: Slight elevated blood glucose level therefore will increase Levemir 42 unit daily and. Continue medium dose sliding scale. Diabetic diet. pre-meal lispro 8 units (4) HLD (hyperlipidemia) Current Visit: No Status: Chronic Assessment and Plan: Continue home meds (5) Essential hypertension Current Visit: No Status: Chronic Assessment and Plan: Continue home meds (6) DVT prophylaxis Current Visit: Yes Status: Acute Assessment and Plan: Heparin subcutaneous - Time Spent with Patient Total time spent is greater than 50% in coordination of care (as documented) at patient's floor/unit and/or counseling patient: Internal Medicine: Result - Labs CBC & Chem 7: 03/27/19 03:00 03/27/19 03:00 Consult Discharge Plan - Plan Referrals: [facility],Andry Newby MD [Primary Care Provider] - (2) Osteomyelitis Qualifiers: Osteomyelitis type: other acute Osteomyelitis location: foot Laterality: right Qualified Code(s): M86.171 - Other acute osteomyelitis, right ankle and foot (3) Diabetes type 2, uncontrolled Qualifiers: Glycemic state: with hyperglycemia Qualified Code(s): E11.65 - Type 2 diabetes mellitus with hyperglycemia (4) HLD (hyperlipidemia) Qualifiers: Qualified Code(s): E78.5 - Hyperlipidemia, unspecified
[2019-03-28] MEDS: Nicotine 2 MG GUM BC PRN (17:56)
[2019-03-28] MEDS: traMADol 50 MG TABLET PO PRN (18:04)
[2019-03-28] MEDS ORDERED: Insulin DETEMIR 100 UNIT/ML X5UNITS SQ SCH (21:00)
[2019-03-29] MEDS: ceFAZolin 2,000 MG in 0.9 % Sodium Chloride 100 ML IVPB SCH ×4 (00:19→23:17)
[2019-03-29] MEDS: *HR* Heparin 5,000 UNIT/ML VIAL SQ SCH ×3 (05:18→21:21)
[2019-03-29] MEDS: Insulin LISPRO 300 UNITS/3 ML VIAL SQ SCH ×6 (07:40→17:37)
[2019-03-29] MEDS: 0.9 % Sodium Chloride 500 ML IV SCH ×2 (10:42→22:51)
[2019-03-29] MEDS: Aspirin 81 MG TAB.CHEW PO SCH (10:46)
[2019-03-29] MEDS: Loratadine 10 MG TABLET PO SCH (10:46)
[2019-03-29] MEDS: metroNIDAZOLE 500 MG TABLET PO SCH ×2 (10:47→15:54)
[2019-03-29] MEDS ORDERED: Lidocaine Viscous Oral Soln 15 ML SOLUTION MM PRN (11:02)
[2019-03-29] MEDS ORDERED: 0.9 % Sodium Chloride 500 ML IVC ONE (11:02)
[2019-03-29] MEDS: *HR* Midazolam HCl 5 MG/5 ML VIAL IVP PRN ×2 (11:50→11:55)
[2019-03-29] MEDS: *HR* FentaNYL (PF) 100 MCG/2 ML VIAL IVP PRN ×2 (11:50→11:55)
--- NOTE | 2019-03-29 13:32 | Discharge Summary ---
- NOTES TO OUTPATIENT PROVIDER Notes to Outpatient Provider: Follow-up PCP in 3-5 days-weekly CBC BMP while on antibiotic and adjust further dose as needed. Keep appointment with forest nursery supervisor -of note recommendation ,Once discharged dressing may stay in place. Will need to be seen in clinic per 1 week after discharge. Discharge with post operative shoe, weight bearing to heel only. Orders not resulted at time of discharge: Pending orders 03/23/19 16:09 Surgical Pathology [PTH] Routine 03/23/19 16:34 AFB Culture, Tissue [TB] Routine AFB Smear [TB] Routine Fungal Culture [MYC] Routine 03/23/19 18:40 AFB Culture, Tissue [TB] Routine AFB Smear [TB] Routine Culture,Anaerobic [RM] Routine Fungal Culture [MYC] Routine 03/24/19 14:37 Culture,Blood [BC] Stat 03/25/19 06:16 Culture,Blood [BC] AM 0400 03/30/19 04:00 BMP [Basic Metabolic Panel] AM 0400 Complete Blood Count [HEME] AM 0400 03/31/19 04:00 BMP [Basic Metabolic Panel] AM 0400 Complete Blood Count [HEME] AM 0400 Date of Encounter: 03/30/19 Time of Encounter: 08:04 - Discharge Diagnosis (1) MSSA bacteremia Priority: Primary Status: Acute Assessment and Plan: 1 of 2 bottles from 03/22. Repeat bld cx on 03/24 and 03/25 negative to date. Likely from osteo, TTE -ve for vegetation FRANCO-negative for vegetation Okay to discharge from ID standpoint on cefazolin 2 g IV every 8 hour to complete on 04/08/2019 but does not need Flagyl. No growth home final blood culture report Weekly CBC BMP while on antibiotic and follow report with PCP Patient will follow forest nursery supervisor as per his instruction (2) Osteomyelitis Priority: Primary Status: Acute Assessment and Plan: Status post partial right first toe amputation on 03/23. Culture growing MSSA in both wound and blood. Repeat blood cultures 03/24 and 03/25 -ve to date Pathology report pending-follow with forest nursery supervisor's on OPD basis Lead Handler's on board- of note recommendation ,Once discharged dressing may stay in place Will need to be seen in clinic per 1 week after discharge Discharge with post operative shoe, weight bearing to heel only. (3) Diabetes type 2, uncontrolled Priority: Primary Status: Chronic Assessment and Plan: Continue home medicine and further monitoring of blood glucose level as per PCP. Diabetic diet. Qualifiers: Glycemic state: with hyperglycemia Qualified Code(s): E11.65 - Type 2 diabetes mellitus with hyperglycemia (4) HLD (hyperlipidemia) Priority: Secondary Status: Chronic Assessment and Plan: Continue home meds Qualifiers: Qualified Code(s): E78.5 - Hyperlipidemia, unspecified (5) Essential hypertension Priority: Primary Status: Chronic Assessment and Plan: normal blood pressure. Hospital course: Ms. Gallo is a 53 year old female patient got admitted for further treatment of osteomyelitis and mssa bacteremia. Lead Handler's and was consulted and is started IV antibiotic. Please see detail in diagnosis section of discharge summary. At the time of discharge patient clinically hemodynamically stable, tolerating oral diet. Discharge instruction as mentioned in the follow-up section. Home health care consultation for PT OT and nursing. Discussed discharge plan with patient,staff, social media intern, consultants and made arrangement for IV antibiotic Discharge discussed with: patient, nurse, social work, case management, network consultant Time spent discussing smoking cessation with patient: more than 10 minutes - Time Spent with Patient Total time spent providing and/or coordinating discharge services: Time spent: Greater than 30 minutes - Discharge Medications Prescriptions: New Nicotine Gum [Nicorette gum] 2 mg BC Q2HWA PRN #30 gum PRN Reason: Nicotine Cravings Continued Aspirin 81 mg PO DAILY Rosuvastatin Calcium [Crestor] 10 mg PO QPM Insulin Glargine,Hum.rec.anlog [Lantus Solostar] 65 unit SQ HS Insulin ASPART [Novolog Flexpen] 25 - 30 unit SQ TIDWM Cetirizine HCl [Zyrtec] 10 mg PO DAILY Albuterol Sulfate [Albuterol Inhaler] 2 puff IH Q4H PRN PRN Reason: Shortness Of Breath Home Medications: Albuterol Sulfate [Albuterol Inhaler] 2 puff IH Q4H PRN 04/22/16 [History] Aspirin 81 mg PO DAILY 04/22/16 [History] Cetirizine HCl [Zyrtec] 10 mg PO DAILY 04/22/16 [History] Insulin ASPART [Novolog Flexpen] 25 - 30 unit SQ TIDWM 04/22/16 [History] Insulin Glargine,Hum.rec.anlog [Lantus Solostar] 65 unit SQ HS 04/22/16 [History] Rosuvastatin Calcium [Crestor] 10 mg PO QPM 04/22/16 [History] Nicotine Gum [Nicorette gum] 2 mg BC Q2HWA PRN #30 gum 03/30/19 [Rx] Allergies/Adverse Reactions: Allergy/AdvReac Type Severity Reaction Status Date / Time latex AdvReac Blister Verified 11/07/17 08:53 nicotine [From Nicoderm CQ] AdvReac Blister Verified 03/25/19 12:03 tape AdvReac Blister Uncoded 11/07/17 08:53 topical antibiotics AdvReac Blister Uncoded 11/07/17 08:53 Date of admission: 03/22/19 18:41 Primary care physician: Andry Flores MD Consults: 03/22/19 16:43 Consult to Podiatry [CONS] Stat Consulting Provider: Podiatry [facility] Reason for Consult: diabetic right great toe Time Notified: 16:43 Call Completed: Yes 03/24/19 08:43 Consult to Physical Therapy [CONS] Routine Comment: Evaluate, develop and implement POC Reason for Consult: PT eval Does patient have active BEDREST order?: No Is patient medically & hemodynamically stable?: Yes 03/24/19 13:46 Consult to Infectious Diseases [CONS] Routine Consulting Provider: [facility] Reason for Consult: Osteomyelitis. Bacteremia. ABX recs Call Completed: No - Constitutional Vitals: Temp Pulse Resp BP Pulse Ox 98.1 F 72 14 100/62 95 03/29/19 12:58 03/29/19 12:58 03/29/19 12:58 03/29/19 12:58 03/29/19 12:58 General appearance: Present: A&O X 3, no acute distress Exam: GEN: NAD CVS: RRR. S1, S2, No m/r/g RESP: CTAB ABD: Soft, NT, ND, +BS EXT: No edema. 2+ DP. No rashes. Right lower extremity dressing c/d/i NEURO: No focal neurological deficit. - Patient Status Disposition: Home Health Service Condition: Fair Overall status at discharge: patient is progressing back to baseline - Discharge Instructions Follow Up With: Andry Flores MD [Primary Care Provider] - - Diet and Activity Activity: as per physical therapy Diet: diabetic diet, low fat, low cholesterol, low salt diet
--- NOTE | 2019-03-29 14:38 | Infectious Disease Progress No ---
ID Progress Note Date of Encounter: 03/29/19 Time of Encounter: 13:20 - Subjective Subjective: Patient seen and examined. No acute events noted. Patient states overall she feels well. Denies fevers, chills, or rigors. Denies chest pain, shortness of breath, or cough. Denies nausea, vomiting, or diarrhea, or constipation. Denies abdominal pain or urinary complaints. Reports minimal pain at the surgical site. Denies oral thrush or skin lesions. - Objective CBC & Chem 7: 03/27/19 03:00 03/27/19 03:00 - Exam Vitals: Temp Pulse Resp BP Pulse Ox 98.1 F 64 16 103/63 96 03/29/19 14:15 03/29/19 14:15 03/29/19 14:15 03/29/19 14:15 03/29/19 14:15 Exam: Head: Atraumatic, normal inspection, normocephalic. Eye: EOMI, PERRLA, no scleral icterus noted. ENT: Mucous membranes moist. No odontogenic infection noted. No subconjunctival hemorrhage noted. Neck: Normal inspection, no meningismus. Respiratory: Clear to auscultation. No rales, respiratory distress, rhonchi, or wheezes noted. Cardiovascular: Regular rate and rhythm, S1 and S2 audible. No murmurs, rubs, or gallops. GI: Soft, nondistended, normal bowel sounds. Extremities: No joint swelling, pedal edema, or tenderness noted. Right foot dressing C/d/I. Back: Normal inspection. No vertebral tenderness noted. Neurological: Alert, oriented 3, no focal deficits. Psychiatric: normal affect, normal mood. Skin: Dry, intact, warm. Normal color. No rashes. No endocarditis stigmata not ed. - Assessment and Plan (1) Sepsis Current Visit: Yes Status: Acute The patient had 2 sepsis criteria on admission. Likely secondary to MSSA bacteremia and osteomyelitis. Improved. Afebrile. Tachycardia resolved. Blood cultures drawn 03/22/19 are +1 out of 2 sets were positive for MSSA. Repeat blood cultures drawn 03/24/19 are no growth to date 2 sets. Additional blood cultures drawn 03/25/19 are no growth to date 2 sets. Qualifiers: Sepsis type: methicillin susceptible Staphylococcus aureus Qualified Code(s): A41.01 - Sepsis due to Methicillin susceptible Staphylococcus aureus SNOMED Code(s): 94453022 (2) MSSA bacteremia Current Visit: Yes Status: Acute Causative organism: MSSA Source: likely right great toe infection. Blood cultures drawn 03/22/19 are +1 out of 2 sets were positive for MSSA. Repeat blood cultures drawn 03/24/19 are no growth to date 2 sets. Additional blood cultures drawn 03/25/19 are no growth to date 2 sets. Also located due to the presence of osteomyelitis. No endocarditis stigmata noted on exam. TTE negative for valvular vegetations. FRANCO negative. The patient has one major and one minor modified [place] criteria. Currently on cefazolin. SNOMED Code(s): 429982581 (3) Osteomyelitis of great toe of right foot Current Visit: Yes Status: Acute Location: Right great toe. Causative organism: MSSA. Preop ESR greater than 130, CRP 154. Status post incision and drainage below fascia right first toe and right first toe amputation 03/23/2019. Dr. Benjamin believes that he went significantly proximal to the infected bone and he feels that he got all the infection. He recommended oral antibiotics. Pathology pending. Cultures as above. Currently on cefazolin and flagyl. SNOMED Code(s): 234230505, 016356059, [id number] (4) Cellulitis of great toe, right Current Visit: Yes Status: Acute Location: Right great toe. Causative organism: MSSA. Secondary to right great toe ulcer. Podiatry consulted. States post partial amputation. Currently on cefazolin and flagyl. SNOMED Code(s): 23978632 (5) Ulcer of right great toe due to diabetes mellitus Current Visit: Yes Status: Acute SNOMED Code(s): 18894709 (6) Diabetes type 2, uncontrolled Current Visit: Yes Status: Chronic Recommend aggressive glucose monitoring and control to promote wound healing and prevent re-infection. Management per the primary team. Qualifiers: Glycemic state: with hyperglycemia Qualified Code(s): E11.65 - Type 2 diabetes mellitus with hyperglycemia SNOMED Code(s): 586509664, 406970477 (7) HLD (hyperlipidemia) Current Visit: No Status: Chronic Qualifiers: Qualified Code(s): E78.5 - Hyperlipidemia, unspecified SNOMED Code(s): 19128723 (8) Tobacco abuse Current Visit: Yes Status: Acute SNOMED Code(s): 163005158 - Recommendations Recommendations: Await repeat blood cultures to finalize. Wound care and activity per the Podiatry team. Continue cefazolin 2 grams IV Q8H. Discontinue flagyl. Duration of treatment depends on the clinical picture, but likely 14 days from the first set of negative blood cultures if FRANCO is negative since Podiatry thinks all of the infected bone was removed. Recommend treating through 04/06/19. Monitor renal function and dose-adjust antibiotics. Consult VAT for midline placement. cargo services coordinator to assist with discharge planning. Will need weekly CBC, BUN/Cr, ESR, CRP. Will need weekly IV care per protocol. No ID follow-up needed if going to closely follow with Podiatry on discharge. Consult Discharge Plan - Plan Referrals: get,Andry Newby MD [Primary Care Provider] - - Attending Attestation I have personally performed a face to face evaluation on this patient. I have reviewed and agree with the care plan. History and Exam by me shows: Assessment and plan: 1.Sepsis 2.Osteomyelitis of the great toe of the right foot status post amputation. All infected digit have been removed per podiatry 3.MSSA bacteremia FRANCO pending 4.Diabetes mellitus type 2 5.Hyperlipidemia Recommendations: T FRANCO was negative Continue cefazolin duration through 04/08/2019 Okay to stop Flagyl Discussed with the hospitalist team
--- NOTE | 2019-03-29 15:47 | Internal Med Progress Note ---
Hospitalist Progress Note - Encounter Date of Encounter: 03/29/19 Time of Encounter: 15:42 - Subjective Interval History: No acute event overnight. Had FRANCO done today. Denies fever chills chest pain short of breath cough abdominal pain diarrhea - Exam Vitals: Temp Pulse Resp BP Pulse Ox 98.1 F 64 16 103/63 96 03/29/19 14:15 03/29/19 14:15 03/29/19 14:15 03/29/19 14:15 03/29/19 14:15 Exam: GEN: NAD CVS: RRR. S1, S2, No m/r/g RESP: CTAB ABD: Soft, NT, ND, +BS EXT: No edema. 2+ DP. No rashes. Right lower extremity dressing c/d/i NEURO: No focal neurological deficit. - Assessment and Plan (1) MSSA bacteremia Current Visit: Yes Status: Acute Assessment and Plan: 1 of 2 bottles from 03/22. Repeat bld cx on 03/24 and 03/25 negative to date. Likely from osteo, TTE -ve for vegetation FRANCO-negative for vegetation Okay to discharge from ID standpoint on cefazolin 2 g IV every 8 hour to complete on 04/08/2019 but does not need Flagyl. Follow final blood culture report with PCP. Updated social human services assistants about the discharge plan-possible discharge tomorrow after arranging all the needs for IV antibiotic continuation at home. Weekly CBC BMP Patient will follow wood coater as per his instruction (2) Osteomyelitis Current Visit: Yes Status: Acute Assessment and Plan: Status post partial right first toe amputation on 03/23. Culture growing MSSA in both wound and blood. Repeat blood cultures 03/24 and 03/25 -ve to date Pathology report pending-follow with wood coater's on OPD basis Adjunct Lecturer's on board- of note recommendation ,Once discharged dressing may stay in place Will need to be seen in clinic per 1 week after discharge Discharge with post operative shoe, weight bearing to heel only. (3) Diabetes type 2, uncontrolled Current Visit: Yes Status: Chronic Assessment and Plan: Slight elevated blood glucose level therefore will increase Levemir 45 unit daily and. Continue medium dose sliding scale. Diabetic diet. pre-meal lispro 8 units (4) HLD (hyperlipidemia) Current Visit: No Status: Chronic Assessment and Plan: Continue home meds (5) Essential hypertension Current Visit: No Status: Chronic Assessment and Plan: low normal blood pressure. Continue to monitor (6) DVT prophylaxis Current Visit: Yes Status: Acute Assessment and Plan: Heparin subcutaneous - Time Spent with Patient Total time spent is greater than 50% in coordination of care (as documented) at patient's floor/unit and/or counseling patient: 25 - 35 minutes Plan of Care Discussed with: patient Internal Medicine: Result - Labs CBC & Chem 7: 03/27/19 03:00 03/27/19 03:00 Consult Discharge Plan - Plan Referrals: Ucget,Andry Newby MD [Primary Care Provider] - (2) Osteomyelitis Qualifiers: Osteomyelitis type: other acute Osteomyelitis location: foot Laterality: rig ht Qualified Code(s): M86.171 - Other acute osteomyelitis, right ankle and foot (3) Diabetes type 2, uncontrolled Qualifiers: Glycemic state: with hyperglycemia Qualified Code(s): E11.65 - Type 2 diabetes mellitus with hyperglycemia (4) HLD (hyperlipidemia) Qualifiers: Qualified Code(s): E78.5 - Hyperlipidemia, unspecified
--- NOTE | 2019-03-29 16:31 | Podiatry Progress Note ---
Date of Encounter: 03/29/19 Time of Encounter: 14:00 - Assessment and Plan (1) Cellulitis Current Visit: Yes Status: Acute ID on board Recommending 3 weeks IV antibiotic therapy Awaiting final blood cultures to determine course of treatment. Minimal cellulitis noted, regression of erythema of toe and to dorsal aspect of right foot. Qualifiers: Site of cellulitis: extremity Site of cellulitis of extremity: lower extremity Laterality: right Qualified Code(s): L03.115 - Cellulitis of right lower limb (2) Cellulitis of great toe, right Current Visit: Yes Status: Acute (3) Osteomyelitis of great toe of right foot Current Visit: Yes Status: Acute s/p 1. Incision and drainage below fascia right 1st toe 2. Right 1st toe amputation Healing well and without complication Removed dressing, cleansed with saline, painted with betadine, adaptic, 4x4 and kerlix applied Patient + for SA in both surgical culture and blood culture Repeat BC pending ID recommending 3 weeks of IV antibiotic therapy Patient underwent FRANCO today which ruled out any vegetation on the heart valves May be discharged once BC result and patient has IV antibiotic set up at home Once discharged dressing may stay in place Will need to be seen in clinic per 1 week after discharge Discharge with post operative shoe, weight bearing to heel only and ambulation with post operative shoe at all times Patient aware and verbalizes understanding Patient educated to call with any fevers, chills, nausea vomiting, flulike symptoms, pain, shortness of breath, trauma to toe or saturated dressing or bleeding to the site Subjective Principal diagnosis: s/p I&D with toe amputation Interval history: s/p 1. Incision and drainage below fascia right 1st toe 2. Right 1st toe amputation Patient resting comfortably. Patient states pain is now minimal. Patient is tearful upon entering room states she had FRANCO this morning and they will still not feed her- states they told her that her gag reflex has not returned. States she is "going to show them and not eat until she is discharged" Denies any fevers, chills, n/v or fls. Denies any trauma. Post operative shoe at bedside. Objective - Vital Signs Vital Signs: Vital Signs Temp Pulse Resp BP Pulse Ox 03/29/19 14:15 98.1 F 64 16 103/63 96 03/29/19 12:58 98.1 F 72 14 100/62 95 03/29/19 11:30 97.6 F 68 18 117/64 94 03/29/19 10:07 97.8 F 64 16 102/64 95 03/29/19 07:12 97.7 F 67 16 113/69 98 03/29/19 04:04 97.6 F 65 14 110/66 97 03/28/19 20:06 98.6 F 79 15 116/65 96 Intake and Output 03/29/19 03/29/19 03/29/19 07:59 15:59 23:59 Intake Total 100 / 291 191 / 291 Balance 100 / 291 191 / 291 Intake: IV Fluids 100 / 291 191 / 291 0.9 % Sodium Chloride 500 ML @ 91 / 91 150 mls/hr IVC .Q3H20M ONE Rx#: [id number] Ancef 2,000 MG In 0.9 % Sodium 100 / 200 100 / 200 Chloride 100 ML @ 200 mls/hr IVPB Q8HR JAIME Rx#:[id number] Oral 0 / 0 0 / 0 Other: Meal NPO for Breakfast # Voids 1 1 Weight 74.843 kg Blood Glucose* 158 Patient Weight 03/29/19 23:59 Weight 74.843 kg - Exam Exam: Podiatry General Exam: General appearance: alert awake oriented X 3. tearful and anxious Vascular: Pedal pulses +2/4 DP/PT , No evidence of cyanosis, pallor or rubor, Edema graded at 1+/4, Skin Temperature warm, No calf pain with manual compression. capillary refill time is immediate to digits. Neurologic: Sensation intact with light touch to foot. . Postop Exam: S/P Sutures intact to incision line, no signs of dehiscence. No open area, no drainage, no odor, minimal erythema only surrounding surgical line, continues to improve. no streaking. Minimal edema. - Lab Result Diagrams: 03/27/19 03:00 03/27/19 03:00 Labs: Abnormal lab results RBC 3.72 M/mcL (3.82-4.97) L 03/27/19 03:00 Hgb 11.0 g/dL (11.5-15.4) L 03/27/19 03:00 Hct 34.7 % (35.3-44.9) L 03/27/19 03:00 MCHC 31.3 g/dL (31.6-35.5) L 03/26/19 01:05 ESR 67 mm/hr (0-15) H 03/26/19 06:26 Chloride 110 mEq/L (98-107) H 03/23/19 03:24 Glucose 239 mg/dL (70-105) H 03/27/19 03:00 POC Glucose 218 mg/dL (70-99) H 03/27/19 20:42 11.6 % (-5.6) H 03/22/19 15:18 Calcium 8.4 mg/dL (8.6-10.3) L 03/23/19 03:24 AST 10 Units/L (13-39) L 03/23/19 03:24 25 mg/L (Less than 10) H 03/26/19 06:26 3.2 g/dL (3.5-5.7) L 03/23/19 03:24 3.6 g/dL (2.4-3.5) H 03/23/19 03:24 0.9 (1.1-2.2) L 03/23/19 03:24 Ur Specific [place] > 1.030 (1.010-1.025) H 03/22/19 14:47 >=1000 mg/dL (Normal) H 03/22/19 14:47 Vancomycin Trough 15 mcg/mL (5-10) H 03/27/19 20:00 Staphylococcus sp PCR DETECTED (Not Detect) A 03/22/19 15:05 Staph aureus (PCR) DETECTED (Not Detect) A 03/22/19 15:05 Microbiology, Last 48 Hours 03/23/19 10:40 Anaerobic Culture - Final Right Great Toe No anaerobes were recovered. 03/23/19 16:34 Anaerobic Culture - Final Surgery No anaerobes were recovered. 03/23/19 18:40 Wound Culture - Final Surgery No growth. 03/22/19 15:07 Blood Culture - Final Peripheral Venipuncture No growth. Final report. Consult Discharge Plan - Plan Referrals: Andry Flores MD [Primary Care Provider] - Prescriptions: Nicotine Gum [Nicorette gum] 2 mg BC Q2HWA PRN #30 gum PRN Reason: Nicotine Cravings
[2019-03-29] MEDS ORDERED: Insulin DETEMIR 100 UNIT/ML X5UNITS SQ SCH (21:00)
[2019-03-29] MEDS: traMADol 50 MG TABLET PO PRN (21:21)
[2019-03-30] MEDS: *HR* Heparin 5,000 UNIT/ML VIAL SQ SCH (05:28)
[2019-03-30 06:45] VITALS: BP 126/73
[2019-03-30] MEDS: Insulin LISPRO 300 UNITS/3 ML VIAL SQ SCH ×2 (08:13→08:51)
--- NOTE | 2019-03-30 08:20 | Physician Discharge Referral ---
Home Health/Hosp Referral Info Transfer to: Home Health - Diagnosis (1) MSSA bacteremia Priority: Primary Status: Acute (2) Osteomyelitis Priority: Primary Status: Acute (3) Diabetes type 2, uncontrolled Priority: Primary Status: Chronic (4) HLD (hyperlipidemia) Priority: Secondary Status: Chronic (5) Essential hypertension Priority: Primary Status: Chronic - Respiratory Orders Smoking Cessation: Smoking cessation has been advised. For more information, call the [place] Tobacco Quit Line at 6-173-TLHM-NOW. - Services Needed Following services are medically necessary services: Nursing, Physical Therapy, Occupational Therapy - Transfer Medications Prescriptions: Nicotine Gum [Nicorette gum] 2 mg BC Q2HWA PRN #30 gum PRN Reason: Nicotine Cravings Home Medications: Albuterol Sulfate [Albuterol Inhaler] 2 puff IH Q4H PRN 04/22/16 [History] Aspirin 81 mg PO DAILY 04/22/16 [History] Cetirizine HCl [Zyrtec] 10 mg PO DAILY 04/22/16 [History] Insulin ASPART [Novolog Flexpen] 25 - 30 unit SQ TIDWM 04/22/16 [History] Insulin Glargine,Hum.rec.anlog [Lantus Solostar] 65 unit SQ HS 04/22/16 [History] Rosuvastatin Calcium [Crestor] 10 mg PO QPM 04/22/16 [History] Nicotine Gum [Nicorette gum] 2 mg BC Q2HWA PRN #30 gum 03/30/19 [Rx] Allergies/Adverse Reactions: Allergy/AdvReac Type Severity Reaction Status Date / Time latex AdvReac Blister Verified 11/07/17 08:53 nicotine [From Nicoderm CQ] AdvReac Blister Verified 03/25/19 12:03 tape AdvReac Blister Uncoded 11/07/17 08:53 topical antibiotics AdvReac Blister Uncoded 11/07/17 08:53 Certification: Further, I certify that my clinical findings support that this patient is homebound (i.e. absences from home require considerable and taxing effort and are for medical reasons or cheondoism services or infrequently or short duration when for other reasons) because: Homebound Reason: Patient requires assistance of a person or device to safely leave home Attestation: My signature below is to certify that this patient is under my care and that I, or nurse practitioner, or a physician's web press operator assistant working with me, has a [id number] encounter with this patient.
[2019-03-30 08:41] LABS: Basophils # 0.1 K/mcL (0.0-0.2); Basophils % 1.5 %; Eosinophils # 0.3 K/mcL (0.0-0.6); Eosinophils % 3.9 %; Hematocrit 41.1 % (35.3-44.9); Immature Granulocytes % 0.1 % (0-4); Lymphocytes # 2.9 K/mcL (0.6-4.6); Lymphocytes % 42.9 %; Mean Corpuscular HGB Conc 31.6 g/dL (31.6-35.5); Mean Corpuscular Hemoglobin 29.4 pg (28.0-33.3); Mean Platelet Volume 9.7 fL (9.4-12.4); Monocytes # 0.7 K/mcL (0.0-1.3); Monocytes % 10.7 %; Neutrophils # 2.8 K/mcL (1.6-8.9); Platelet Count 359 K/mcL (140-400); Red Blood Count 4.42 M/mcL (3.82-4.97); Segmented Neutrophils % 40.9 %
[2019-03-30] MEDS: Loratadine 10 MG TABLET PO SCH (08:51)
[2019-03-30] MEDS: Aspirin 81 MG TAB.CHEW PO SCH (08:51)
[2019-03-30] MEDS: ceFAZolin 2,000 MG in 0.9 % Sodium Chloride 100 ML IVPB SCH (08:52)
[2019-03-30 08:53] LABS: Calcium 9.6 mg/dL (8.6-10.3); Carbon Dioxide 24 mEq/L (23-29); Chloride 105 mEq/L (98-107); Glucose 106 mg/dL (70-105); Potassium 4.1 mEq/L (3.5-5.1); Sodium 139 mEq/L (136-145)
[2019-03-30 09:02] LABS: BUN/Creatinine Ratio 26 (6-26); Blood Urea Nitrogen 15 mg/dL (6-20); Osmolality,Calculated 289 (280-300); eGFR For Non-African Americans > 60 (> 60)
== END 2019-03-30 10:11 | disposition home health service (06) | DRG 854 ==
LOC: 3ANU 13:55 → EMEROOARM 13:55 → 3ANU 18:20 → SUATTDRO 18:41 → 3ANU 03-23 04:08
PROVIDERS: ADMIT Internal Medicine; ATTEND Internal Medicine

== ENCOUNTER 2020-07-27 13:31 | Observation (INO) ==
[2020-07-27] MEDS ORDERED: Vancomycin 1,250 MG/262.5 ML IV.SOLN IVPB ONE (14:11)
[2020-07-27 14:50] LABS: Hematocrit 41.9 % (35.3-44.9); Hemoglobin 13.1 g/dL (11.5-15.4); Mean Corpuscular HGB Conc 31.3 g/dL (31.6-35.5); Mean Corpuscular Hemoglobin 28.9 pg (28.0-33.3); Mean Corpuscular Volume 92.3 fL (83.0-100.0); Platelet Count 289 K/mcL (140-400); Red Blood Count 4.54 M/mcL (3.82-4.97); Red Cell Distribution Width 13.1 % (11.5-14.5); White Blood Count 9.6 K/mcL (4.3-11.1)
[2020-07-27 15:16] LABS: BUN/Creatinine Ratio 20 (6-26); Blood Urea Nitrogen 14 mg/dL (6-20); Calcium 10.1 mg/dL (8.6-10.3); Carbon Dioxide 22 mEq/L (23-29); Chloride 104 mEq/L (98-107); Glucose 164 mg/dL (70-105); Osmolality,Calculated 294 (280-300); Potassium 3.7 mEq/L (3.5-5.1); Sodium 140 mEq/L (136-145); eGFR For African Americans > 60 (> 60); eGFR For Non-African Americans > 60 (> 60)
[2020-07-27] MEDS ORDERED: Ibuprofen 600 MG TABLET PO ONE (16:28)
[2020-07-27] MEDS ORDERED: *HR* Dextrose 50 % in Water (Vial) 50 ML VIAL IVP PRN (17:42)
[2020-07-27] MEDS ORDERED: Nicotine 2 MG GUM BC PRN (18:01)
[2020-07-27 18:20] LABS: Estimated Average Glucose 237 mg/dl
[2020-07-27] MEDS: lisinopriL 10 MG TABLET PO SCH (18:31)
[2020-07-27] MEDS: Gabapentin 400 MG CAPSULE PO SCH (20:59)
[2020-07-27] MEDS: FluocinoLONE Acet 0.025% CRM 15 GM TUBE TP SCH (21:00)
[2020-07-27] MEDS: cephALEXin 500 MG CAPSULE PO SCH (21:00)
[2020-07-27] MEDS: Acetaminophen 325 MG TABLET PO PRN (23:15)
[2020-07-28 03:40] LABS: Basophils # 0.1 K/mcL (0.0-0.2); Eosinophils # 0.2 K/mcL (0.0-0.6); Eosinophils % 2.6 %; Hematocrit 37.8 % (35.3-44.9); Hemoglobin 11.9 g/dL (11.5-15.4); Immature Granulocytes % 0.1 % (0-4); Lymphocytes # 3.1 K/mcL (0.6-4.6); Lymphocytes % 42.3 %; Mean Corpuscular HGB Conc 31.5 g/dL (31.6-35.5); Mean Corpuscular Hemoglobin 29.5 pg (28.0-33.3); Mean Corpuscular Volume 93.8 fL (83.0-100.0); Mean Platelet Volume 10.2 fL (9.4-12.4); Monocytes # 0.5 K/mcL (0.0-1.3); Monocytes % 7.1 %; Neutrophils # 3.4 K/mcL (1.6-8.9); Platelet Count 256 K/mcL (140-400); Red Blood Count 4.03 M/mcL (3.82-4.97); Segmented Neutrophils % 46.9 %; White Blood Count 7.3 K/mcL (4.3-11.1)
[2020-07-28 04:01] LABS: BUN/Creatinine Ratio 21 (6-26); Blood Urea Nitrogen 20 mg/dL (6-20); Calcium 9.2 mg/dL (8.6-10.3); Carbon Dioxide 28 mEq/L (23-29); Chloride 105 mEq/L (98-107); Glucose 378 mg/dL (70-105); Osmolality,Calculated 306 (280-300); Potassium 4.1 mEq/L (3.5-5.1); Sodium 139 mEq/L (136-145); eGFR For African Americans > 60 (> 60); eGFR For Non-African Americans > 60 (> 60)
[2020-07-28] MEDS ORDERED: Insulin LISPRO 300 UNITS/3 ML VIAL SQ SCH ×2 (08:00→22:15)
[2020-07-28] MEDS: Aspirin 81 MG TAB.CHEW PO SCH (08:41)
[2020-07-28] MEDS: cephALEXin 500 MG CAPSULE PO SCH ×3 (08:41→21:26)
[2020-07-28] MEDS: lisinopriL 10 MG TABLET PO SCH (08:42)
[2020-07-28] MEDS: Gabapentin 400 MG CAPSULE PO SCH ×2 (08:42→21:26)
[2020-07-28] MEDS: Insulin DETEMIR 100 UNIT/ML X5UNITS SQ SCH ×2 (08:42→21:21)
[2020-07-28] MEDS: atenoloL 25 MG TABLET PO SCH (08:42)
[2020-07-28] MEDS: Insulin LISPRO 300 UNITS/3 ML VIAL SQ SCH ×3 (08:47→17:10)
[2020-07-28] MEDS: Fluticasone Propionate Nasal 50 MCG/SPRAY BOTTLE NS SCH (08:48)
[2020-07-28] MEDS: Cetirizine HCl 5 MG/5 ML UDC PO SCH (08:50)
[2020-07-28] MEDS: FluocinoLONE Acet 0.025% CRM 15 GM TUBE TP SCH ×3 (08:56→21:26)
[2020-07-28] MEDS: Acetaminophen 325 MG TABLET PO PRN (15:25)
[2020-07-28] MEDS ORDERED: D5% in Water 1,000 ML IVC PRN (22:05)
[2020-07-28] MEDS ORDERED: *HR* Dextrose 50 % in Water (Vial) 50 ML VIAL IVP PRN (22:05)
[2020-07-28] MEDS ORDERED: Dextrose Gel 15 GM/37.5 ML TUBE PO PRN ×2 (22:05)
[2020-07-29 03:08] LABS: Basophils # 0.1 K/mcL (0.0-0.2); Basophils % 0.6 %; Eosinophils # 0.2 K/mcL (0.0-0.6); Eosinophils % 2.2 %; Hematocrit 35.9 % (35.3-44.9); Hemoglobin 11.4 g/dL (11.5-15.4); Immature Granulocytes % 0.5 % (0-4); Lymphocytes # 3.8 K/mcL (0.6-4.6); Lymphocytes % 37.5 %; Mean Corpuscular HGB Conc 31.8 g/dL (31.6-35.5); Mean Corpuscular Hemoglobin 29.7 pg (28.0-33.3); Mean Corpuscular Volume 93.5 fL (83.0-100.0); Mean Platelet Volume 10.2 fL (9.4-12.4); Monocytes # 0.6 K/mcL (0.0-1.3); Neutrophils # 5.4 K/mcL (1.6-8.9); Platelet Count 282 K/mcL (140-400); Red Blood Count 3.84 M/mcL (3.82-4.97); Segmented Neutrophils % 53.2 %; White Blood Count 10.1 K/mcL (4.3-11.1)
[2020-07-29 03:29] LABS: BUN/Creatinine Ratio 28 (6-26); Blood Urea Nitrogen 21 mg/dL (6-20); Calcium 8.9 mg/dL (8.6-10.3); Carbon Dioxide 26 mEq/L (23-29); Chloride 104 mEq/L (98-107); Glucose 240 mg/dL (70-105); Osmolality,Calculated 293 (280-300); Potassium 4.1 mEq/L (3.5-5.1); Sodium 136 mEq/L (136-145); eGFR For African Americans > 60 (> 60); eGFR For Non-African Americans > 60 (> 60)
[2020-07-29 03:52] LABS: Platelet Estimate Normal (Normal)
[2020-07-29] MEDS: Gabapentin 400 MG CAPSULE PO SCH (08:50)
[2020-07-29] MEDS: cephALEXin 500 MG CAPSULE PO SCH (08:50)
[2020-07-29] MEDS: Cetirizine HCl 5 MG/5 ML UDC PO SCH (08:50)
[2020-07-29] MEDS: Aspirin 81 MG TAB.CHEW PO SCH (08:50)
[2020-07-29] MEDS: atenoloL 25 MG TABLET PO SCH (08:50)
[2020-07-29] MEDS: Insulin LISPRO 300 UNITS/3 ML VIAL SQ SCH ×2 (08:50→11:42)
[2020-07-29] MEDS: Fluticasone Propionate Nasal 50 MCG/SPRAY BOTTLE NS SCH (08:51)
[2020-07-29] MEDS: FluocinoLONE Acet 0.025% CRM 15 GM TUBE TP SCH (08:52)
[2020-07-29] MEDS: lisinopriL 10 MG TABLET PO SCH (08:52)
[2020-07-29 12:28] VITALS: BP 110/66
== END 2020-07-29 15:15 | disposition home or self-care (01) ==
LOC: 3NENU 13:31 → EMEROOARM 13:31 → 3NENU 17:05
PROVIDERS: ADMIT Internal Medicine; ATTEND Internal Medicine

== ENCOUNTER 2021-04-05 16:58 | Inpatient (IN) ==
[2021-04-05 18:28] LABS: BUN/Creatinine Ratio 17 (6-26); Blood Urea Nitrogen 12 mg/dL (6-20); Calcium 9.8 mg/dL (8.6-10.3); Carbon Dioxide 22 mEq/L (23-29); Chloride 102 mEq/L (98-107); Glucose 241 mg/dL (70-105); Osmolality,Calculated 288 (280-300); Potassium 4.3 mEq/L (3.5-5.1); Sodium 135 mEq/L (136-145); eGFR For African Americans > 60 (> 60); eGFR For Non-African Americans > 60 (> 60)
[2021-04-05 18:44] LABS: Basophils # 0.1 K/mcL (0.0-0.2); Basophils % 0.5 %; Eosinophils # 0.1 K/mcL (0.0-0.6); Eosinophils % 0.5 %; Hematocrit 46.9 % (35.3-44.9); Hemoglobin 15.1 g/dL (11.5-15.4); Immature Granulocytes % 0.2 % (0-4); Lymphocytes # 2.8 K/mcL (0.6-4.6); Lymphocytes % 20.6 %; Mean Corpuscular HGB Conc 32.2 g/dL (31.6-35.5); Mean Corpuscular Hemoglobin 28.8 pg (28.0-33.3); Mean Corpuscular Volume 89.5 fL (83.0-100.0); Mean Platelet Volume 9.7 fL (9.4-12.4); Monocytes # 0.7 K/mcL (0.0-1.3); Monocytes % 5.3 %; Platelet Count 319 K/mcL (140-400); Red Blood Count 5.24 M/mcL (3.82-4.97); Segmented Neutrophils % 72.9 %; White Blood Count 13.7 K/mcL (4.3-11.1)
[2021-04-05] MEDS ORDERED: Piperacillin/Tazobactam 3.375 GM in 0.9 % Sodium Chloride Mini Bag 100 ML IVPB ONE (19:00)
[2021-04-05] MEDS ORDERED: Vancomycin 1,250 MG/262.5 ML IV.SOLN IVPB STA (19:43)
[2021-04-05] MEDS ORDERED: 0.9 % Sodium Chloride 1,000 ML IV ONE (19:47)
[2021-04-05 19:57] LABS: C-Reactive Protein 23 mg/L (Less than 10)
[2021-04-05] MEDS ORDERED: Melatonin 3 MG TABLET PO PRN (20:47)
[2021-04-05] MEDS ORDERED: Naloxone 0.4 MG/ML INJ IVP PRN (20:47)
[2021-04-05] MEDS ORDERED: Acetaminophen 325 MG TABLET PO PRN (20:47)
[2021-04-05] MEDS ORDERED: Dextrose Gel 15 GM/37.5 ML TUBE PO PRN ×2 (21:07)
[2021-04-05] MEDS ORDERED: D5% in Water 1,000 ML IVC PRN (21:07)
[2021-04-05] MEDS ORDERED: *HR* Dextrose 50 % in Water (Vial) 50 ML VIAL IVP PRN (21:07)
[2021-04-05] MEDS ORDERED: Nicotine 2 MG GUM BC PRN (21:17)
[2021-04-05] MEDS ORDERED: Gabapentin 300 MG CAPSULE PO ONE (23:11)
[2021-04-06] MEDS: Insulin LISPRO 300 UNITS/3 ML VIAL SUBQ SCH ×4 (00:52→17:13)
[2021-04-06 01:09] LABS: Hematocrit 41.6 % (35.3-44.9); Mean Corpuscular HGB Conc 32.5 g/dL (31.6-35.5); Mean Corpuscular Hemoglobin 29.2 pg (28.0-33.3); Mean Corpuscular Volume 89.8 fL (83.0-100.0); Mean Platelet Volume 10.1 fL (9.4-12.4); Platelet Count 301 K/mcL (140-400); Red Blood Count 4.63 M/mcL (3.82-4.97); Red Cell Distribution Width 13.2 % (11.5-14.5); White Blood Count 12.6 K/mcL (4.3-11.1)
[2021-04-06 01:11] LABS: Hemoglobin 13.5 g/dL (11.5-15.4)
[2021-04-06 01:14] LABS: Prothrombin Time 11.6 Seconds (9.4-12.1)
[2021-04-06 01:26] LABS: BUN/Creatinine Ratio 16 (6-26); Blood Urea Nitrogen 11 mg/dL (6-20); Carbon Dioxide 26 mEq/L (23-29); Chloride 104 mEq/L (98-107); Glucose 131 mg/dL (70-105); Osmolality,Calculated 285 (280-300); Potassium 3.8 mEq/L (3.5-5.1); Sodium 137 mEq/L (136-145); eGFR For African Americans > 60 (> 60); eGFR For Non-African Americans > 60 (> 60)
[2021-04-06] MEDS: Piperacillin/Tazobactam 3.375 GM in 0.9 % Sodium Chloride Mini Bag 100 ML IVPB SCH ×3 (03:30→18:38)
[2021-04-06] MEDS ORDERED: Gadolinium Contrast Agent (WT Based) IV PRN ×2 (07:34→12:10)
[2021-04-06] MEDS ORDERED: Vancomycin 1,250 MG/262.5 ML IV.SOLN IVPB SCH (09:00)
[2021-04-06] MEDS ORDERED: Lidocaine 1% 0 ML ONE (10:18)
[2021-04-06] MEDS ORDERED: Famotidine 20 MG/2 ML VIAL ONE (10:35)
[2021-04-06] MEDS ORDERED: *HR* FentaNYL (PF) 100 MCG/2 ML VIAL ONE (10:54)
[2021-04-06] MEDS ORDERED: Lidocaine -MPF 2% 2 ML VIAL ONE (10:59)
[2021-04-06] MEDS ORDERED: D5% in Water 1,000 ML IVC PRN (12:10)
[2021-04-06] MEDS ORDERED: Acetaminophen 325 MG TABLET PO PRN (12:10)
[2021-04-06] MEDS ORDERED: *HR* Dextrose 50 % in Water (Vial) 50 ML VIAL IVP PRN (12:10)
[2021-04-06] MEDS ORDERED: Melatonin 3 MG TABLET PO PRN (12:10)
[2021-04-06] MEDS ORDERED: Nicotine 2 MG GUM BC PRN (12:10)
[2021-04-06] MEDS ORDERED: Dextrose Gel 15 GM/37.5 ML TUBE PO PRN ×2 (12:10)
[2021-04-06] MEDS ORDERED: Naloxone 0.4 MG/ML INJ IVP PRN (12:10)
[2021-04-06] MEDS: Vancomycin 1,250 MG/262.5 ML IV.SOLN IVPB SCH (20:25)
[2021-04-06] MEDS: Gabapentin 400 MG CAPSULE PO SCH (20:25)
[2021-04-06] MEDS: Insulin DETEMIR 100 UNIT/ML X5UNITS SUBQ SCH (20:25)
[2021-04-06] MEDS ORDERED: Gabapentin 400 MG CAPSULE PO SCH (21:00)
[2021-04-06] MEDS ORDERED: Insulin DETEMIR 100 UNIT/ML X5UNITS SUBQ SCH (21:00)
[2021-04-06] MEDS: *HR* HYDROcodone/Acet 5/325 mg TABLET PO PRN (22:26)
[2021-04-07] MEDS: Insulin LISPRO 300 UNITS/3 ML VIAL SUBQ SCH ×4 (00:30→18:18)
[2021-04-07] MEDS: Ketorolac 15 MG/ML VIAL IVP PRN (03:22)
[2021-04-07] MEDS: Piperacillin/Tazobactam 3.375 GM in 0.9 % Sodium Chloride Mini Bag 100 ML IVPB SCH ×3 (03:23→18:09)
[2021-04-07 03:43] LABS: Hematocrit 41.7 % (35.3-44.9); Hemoglobin 13.4 g/dL (11.5-15.4); Mean Corpuscular HGB Conc 32.1 g/dL (31.6-35.5); Mean Corpuscular Hemoglobin 28.9 pg (28.0-33.3); Mean Corpuscular Volume 89.9 fL (83.0-100.0); Mean Platelet Volume 10.1 fL (9.4-12.4); Platelet Count 299 K/mcL (140-400); Red Blood Count 4.64 M/mcL (3.82-4.97); Red Cell Distribution Width 13.2 % (11.5-14.5); White Blood Count 11.9 K/mcL (4.3-11.1)
[2021-04-07 04:08] LABS: BUN/Creatinine Ratio 21 (6-26); Blood Urea Nitrogen 15 mg/dL (6-20); Calcium 9.4 mg/dL (8.6-10.3); Carbon Dioxide 26 mEq/L (23-29); Chloride 104 mEq/L (98-107); Glucose 117 mg/dL (70-105); Osmolality,Calculated 286 (280-300); Sodium 137 mEq/L (136-145); eGFR For African Americans > 60 (> 60); eGFR For Non-African Americans > 60 (> 60)
[2021-04-07] MEDS: Vancomycin 1,250 MG/262.5 ML IV.SOLN IVPB SCH (07:50)
[2021-04-07] MEDS: Gabapentin 400 MG CAPSULE PO SCH ×2 (07:51→20:26)
[2021-04-07] MEDS: Multivit/Ca/Min/Fe/FA 1 TAB TABLET PO SCH (07:51)
[2021-04-07] MEDS: Magnesium Oxide 400 MG TABLET PO SCH (07:52)
[2021-04-07] MEDS: Aspirin 81 MG TAB.CHEW PO SCH (07:52)
[2021-04-07] MEDS: Loratadine 10 MG TABLET PO SCH (07:52)
[2021-04-07] MEDS: Fluticasone Propionate Nasal 50 MCG/SPRAY BOTTLE NS SCH (07:57)
[2021-04-07] MEDS ORDERED: Magnesium Oxide 400 MG TABLET PO SCH (09:00)
[2021-04-07] MEDS ORDERED: Fluticasone Propionate Nasal 50 MCG/SPRAY BOTTLE NS SCH (09:00)
[2021-04-07] MEDS ORDERED: Loratadine 10 MG TABLET PO SCH (09:00)
[2021-04-07] MEDS ORDERED: Aspirin 81 MG TAB.CHEW PO SCH (09:00)
[2021-04-07] MEDS ORDERED: Multivit/Ca/Min/Fe/FA 1 TAB TABLET PO SCH (09:00)
[2021-04-07] MEDS: *HR* HYDROcodone/Acet 5/325 mg TABLET PO PRN ×2 (11:48→18:09)
[2021-04-07] MEDS: Vancomycin 1,500 MG/265 ML IV.SOLN IVPB SCH (20:25)
[2021-04-07] MEDS: Insulin DETEMIR 100 UNIT/ML X5UNITS SUBQ SCH (20:26)
[2021-04-08] MEDS: Insulin LISPRO 300 UNITS/3 ML VIAL SUBQ SCH ×4 (00:48→16:34)
[2021-04-08] MEDS: Piperacillin/Tazobactam 3.375 GM in 0.9 % Sodium Chloride Mini Bag 100 ML IVPB SCH ×3 (03:13→19:40)
[2021-04-08] MEDS: Fluticasone Propionate Nasal 50 MCG/SPRAY BOTTLE NS SCH (09:43)
[2021-04-08] MEDS: Loratadine 10 MG TABLET PO SCH (09:43)
[2021-04-08] MEDS: Multivit/Ca/Min/Fe/FA 1 TAB TABLET PO SCH (09:43)
[2021-04-08] MEDS: Aspirin 81 MG TAB.CHEW PO SCH (09:43)
[2021-04-08] MEDS: Magnesium Oxide 400 MG TABLET PO SCH (09:43)
[2021-04-08] MEDS: Gabapentin 400 MG CAPSULE PO SCH ×2 (09:43→21:04)
[2021-04-08] MEDS: Vancomycin 1,500 MG/265 ML IV.SOLN IVPB SCH ×2 (09:44→19:39)
[2021-04-08] MEDS: Ketorolac 15 MG/ML VIAL IVP PRN (11:48)
[2021-04-08] MEDS: *HR* Metformin 500 MG TABLET PO SCH (16:33)
[2021-04-08] MEDS: *HR* HYDROcodone/Acet 5/325 mg TABLET PO PRN (20:00)
[2021-04-08] MEDS: Insulin DETEMIR 100 UNIT/ML X5UNITS SUBQ SCH (21:04)
[2021-04-09 02:22] LABS: Hematocrit 42.4 % (35.3-44.9); Hemoglobin 13.3 g/dL (11.5-15.4); Mean Corpuscular HGB Conc 31.4 g/dL (31.6-35.5); Mean Corpuscular Hemoglobin 28.5 pg (28.0-33.3); Mean Platelet Volume 10.1 fL (9.4-12.4); Platelet Count 305 K/mcL (140-400); Red Blood Count 4.66 M/mcL (3.82-4.97); Red Cell Distribution Width 12.9 % (11.5-14.5); White Blood Count 10.6 K/mcL (4.3-11.1)
[2021-04-09 02:35] LABS: BUN/Creatinine Ratio 25 (6-26); Blood Urea Nitrogen 23 mg/dL (6-20); Calcium 9.4 mg/dL (8.6-10.3); Carbon Dioxide 26 mEq/L (23-29); Chloride 101 mEq/L (98-107); Glucose 332 mg/dL (70-105); Osmolality,Calculated 297 (280-300); Potassium 4.9 mEq/L (3.5-5.1); Sodium 135 mEq/L (136-145); eGFR For African Americans > 60 (> 60); eGFR For Non-African Americans > 60 (> 60)
[2021-04-09] MEDS: Piperacillin/Tazobactam 3.375 GM in 0.9 % Sodium Chloride Mini Bag 100 ML IVPB SCH ×3 (03:51→18:03)
[2021-04-09] MEDS: Aspirin 81 MG TAB.CHEW PO SCH (08:59)
[2021-04-09] MEDS: *HR* Metformin 500 MG TABLET PO SCH ×2 (08:59→16:30)
[2021-04-09] MEDS: Fluticasone Propionate Nasal 50 MCG/SPRAY BOTTLE NS SCH (08:59)
[2021-04-09] MEDS: Magnesium Oxide 400 MG TABLET PO SCH (08:59)
[2021-04-09] MEDS: Gabapentin 400 MG CAPSULE PO SCH ×2 (08:59→20:08)
[2021-04-09] MEDS: Loratadine 10 MG TABLET PO SCH (08:59)
[2021-04-09] MEDS: Multivit/Ca/Min/Fe/FA 1 TAB TABLET PO SCH (08:59)
[2021-04-09] MEDS: Insulin LISPRO 300 UNITS/3 ML VIAL SUBQ SCH ×3 (09:00→16:31)
[2021-04-09] MEDS: Vancomycin 1,500 MG/265 ML IV.SOLN IVPB SCH ×2 (09:00→20:08)
[2021-04-09] MEDS: Insulin DETEMIR 100 UNIT/ML X5UNITS SUBQ SCH (20:09)
[2021-04-09] MEDS: Sennosides/Docusate Sodium TABLET PO SCH (21:42)
[2021-04-09] MEDS: *HR* HYDROcodone/Acet 5/325 mg TABLET PO PRN (21:42)
[2021-04-10 01:26] LABS: Basophils # 0.1 K/mcL (0.0-0.2); Basophils % 0.5 %; Eosinophils # 0.2 K/mcL (0.0-0.6); Eosinophils % 1.5 %; Hematocrit 44.2 % (35.3-44.9); Hemoglobin 14.2 g/dL (11.5-15.4); Immature Granulocytes % 0.4 % (0-4); Lymphocytes # 3.6 K/mcL (0.6-4.6); Lymphocytes % 31.3 %; Mean Corpuscular HGB Conc 32.1 g/dL (31.6-35.5); Mean Corpuscular Hemoglobin 28.9 pg (28.0-33.3); Mean Corpuscular Volume 89.8 fL (83.0-100.0); Mean Platelet Volume 9.9 fL (9.4-12.4); Monocytes # 0.7 K/mcL (0.0-1.3); Monocytes % 6.5 %; Neutrophils # 6.8 K/mcL (1.6-8.9); Platelet Count 288 K/mcL (140-400); Red Blood Count 4.92 M/mcL (3.82-4.97); Red Cell Distribution Width 12.8 % (11.5-14.5); Segmented Neutrophils % 59.8 %; White Blood Count 11.4 K/mcL (4.3-11.1)
[2021-04-10 01:46] LABS: BUN/Creatinine Ratio 24 (6-26); Blood Urea Nitrogen 18 mg/dL (6-20); Calcium 9.3 mg/dL (8.6-10.3); Carbon Dioxide 23 mEq/L (23-29); Chloride 102 mEq/L (98-107); Glucose 277 mg/dL (70-105); Osmolality,Calculated 290 (280-300); Potassium 4.1 mEq/L (3.5-5.1); Sodium 134 mEq/L (136-145); eGFR For African Americans > 60 (> 60); eGFR For Non-African Americans > 60 (> 60)
[2021-04-10 02:06] LABS: Platelet Estimate Normal (Normal)
[2021-04-10] MEDS: Piperacillin/Tazobactam 3.375 GM in 0.9 % Sodium Chloride Mini Bag 100 ML IVPB SCH ×3 (02:58→19:40)
[2021-04-10] MEDS: Multivit/Ca/Min/Fe/FA 1 TAB TABLET PO SCH (08:57)
[2021-04-10] MEDS: Aspirin 81 MG TAB.CHEW PO SCH (08:57)
[2021-04-10] MEDS: *HR* Metformin 500 MG TABLET PO SCH ×2 (08:57→16:48)
[2021-04-10] MEDS: Sennosides/Docusate Sodium TABLET PO SCH ×2 (08:57→19:41)
[2021-04-10] MEDS: Gabapentin 400 MG CAPSULE PO SCH ×2 (08:57→19:41)
[2021-04-10] MEDS: Fluticasone Propionate Nasal 50 MCG/SPRAY BOTTLE NS SCH (08:58)
[2021-04-10] MEDS: Vancomycin 1,500 MG/265 ML IV.SOLN IVPB SCH ×2 (08:58→19:41)
[2021-04-10] MEDS: Loratadine 10 MG TABLET PO SCH (08:58)
[2021-04-10] MEDS: Magnesium Oxide 400 MG TABLET PO SCH (08:58)
[2021-04-10] MEDS: Insulin LISPRO 300 UNITS/3 ML VIAL SUBQ SCH ×3 (08:59→16:49)
[2021-04-10] MEDS: Insulin DETEMIR 100 UNIT/ML X5UNITS SUBQ SCH (19:42)
[2021-04-11 01:44] LABS: Hematocrit 41.7 % (35.3-44.9); Hemoglobin 13.1 g/dL (11.5-15.4); Mean Corpuscular HGB Conc 31.4 g/dL (31.6-35.5); Mean Corpuscular Hemoglobin 28.3 pg (28.0-33.3); Mean Corpuscular Volume 90.1 fL (83.0-100.0); Mean Platelet Volume 9.6 fL (9.4-12.4); Platelet Count 316 K/mcL (140-400); Red Blood Count 4.63 M/mcL (3.82-4.97); Red Cell Distribution Width 12.9 % (11.5-14.5); White Blood Count 12.7 K/mcL (4.3-11.1)
[2021-04-11 02:06] LABS: BUN/Creatinine Ratio 23 (6-26); Blood Urea Nitrogen 17 mg/dL (6-20); Calcium 9.3 mg/dL (8.6-10.3); Carbon Dioxide 26 mEq/L (23-29); Chloride 103 mEq/L (98-107); Glucose 222 mg/dL (70-105); Osmolality,Calculated 292 (280-300); Potassium 4.3 mEq/L (3.5-5.1); Sodium 137 mEq/L (136-145); eGFR For African Americans > 60 (> 60); eGFR For Non-African Americans > 60 (> 60)
[2021-04-11] MEDS: Piperacillin/Tazobactam 3.375 GM in 0.9 % Sodium Chloride Mini Bag 100 ML IVPB SCH (03:42)
[2021-04-11 06:53] VITALS: BP 112/55
[2021-04-11] MEDS: Aspirin 81 MG TAB.CHEW PO SCH (08:03)
[2021-04-11] MEDS: *HR* Metformin 500 MG TABLET PO SCH (08:03)
[2021-04-11] MEDS: Sennosides/Docusate Sodium TABLET PO SCH (08:04)
[2021-04-11] MEDS: Magnesium Oxide 400 MG TABLET PO SCH (08:04)
[2021-04-11] MEDS: Loratadine 10 MG TABLET PO SCH (08:04)
[2021-04-11] MEDS: Insulin LISPRO 300 UNITS/3 ML VIAL SUBQ SCH (08:04)
[2021-04-11] MEDS: Multivit/Ca/Min/Fe/FA 1 TAB TABLET PO SCH (08:04)
[2021-04-11] MEDS: Gabapentin 400 MG CAPSULE PO SCH (08:04)
[2021-04-11] MEDS: Vancomycin 1,500 MG/265 ML IV.SOLN IVPB SCH (09:54)
== END 2021-04-11 11:45 | disposition home or self-care (01) | DRG 854 ==
LOC: 3NENU 16:58 → EMEROOARM 16:58 → 3NENU 22:33 → SUATTDRO 04-06 11:00
PROVIDERS: ADMIT Internal Medicine; ATTEND Internal Medicine

== ENCOUNTER 2022-06-02 23:34 | Inpatient (IN) ==
[2022-06-03 00:19] LABS: Bilirubin,Urine Negative (Negative); Blood,Urine Small (Negative); Clarity,Urine Turbid (Clear); Color,Urine Yellow (Yellow); Glucose,Urine (UA) >=1000 mg/dL (Normal); Ketones,Urine Negative (Negative); Leukocyte Esterase,Urine Large (Negative); Nitrite,Urine Positive (Negative); Protein,Urine 50 mg/dL (Neg-Trace); Specific Gravity,Urine 1.029 (1.010-1.025); Urobilinogen,Urine Normal (Normal); WBC,Urine TNTC per hpf (0-3)
[2022-06-03] MEDS ORDERED: 0.9 % Sodium Chloride 1,000 ML IV ONE ×3 (00:34→02:38)
[2022-06-03 00:48] LABS: Basophils % 0.2 %; Eosinophils % 0.2 %; Hematocrit 38.6 % (35.3-44.9); Hemoglobin 12.5 g/dL (11.5-15.4); Immature Granulocytes % 0.6 % (0-4); Lymphocytes # 0.8 K/mcL (0.6-4.6); Lymphocytes % 4.3 %; Mean Corpuscular HGB Conc 32.4 g/dL (31.6-35.5); Mean Corpuscular Hemoglobin 28.8 pg (28.0-33.3); Mean Corpuscular Volume 88.9 fL (83.0-100.0); Mean Platelet Volume 9.4 fL (9.4-12.4); Monocytes # 0.9 K/mcL (0.0-1.3); Neutrophils # 16.1 K/mcL (1.6-8.9); Platelet Count 270 K/mcL (140-400); Red Blood Count 4.34 M/mcL (3.82-4.97); Red Cell Distribution Width 13.7 % (11.5-14.5); Segmented Neutrophils % 89.7 %; White Blood Count 17.9 K/mcL (4.3-11.1)
[2022-06-03] MEDS ORDERED: cefTRIAXone 1,000 MG in Water for inj. (sterile) 10 ML IVP ONE (01:00)
[2022-06-03 01:01] LABS: VBG HCO3 23 mEq/L (21-27); VBG PCO2 38 mmHg (41-51); VBG PH 7.39 pH Units (7.32-7.42); VBG PO2 72 mmHg (25-50)
[2022-06-03 01:04] LABS: Alanine Aminotransferase 14 Units/L (7-52); Albumin 3.6 g/dL (3.5-5.7); Albumin/Globulin Ratio 0.9 (1.1-2.2); Alkaline Phosphatase 105 Units/L (34-104); Aspartate Amino Transferase 13 Units/L (13-39); BUN/Creatinine Ratio 23 (6-26); Bilirubin,Direct 0.1 mg/dL (0.0-0.2); Bilirubin,Indirect 0.3 mg/dL (0.0-1.0); Bilirubin,Total 0.4 mg/dL (0.3-1.0); Blood Urea Nitrogen 23 mg/dL (6-20); Carbon Dioxide 24 mEq/L (23-29); Chloride 100 mEq/L (98-107); Globulin 4.2 g/dL (2.4-3.5); Glucose 376 mg/dL (70-105); Osmolality,Calculated 295 (280-300); Potassium 3.5 mEq/L (3.5-5.1); Sodium 133 mEq/L (136-145); Total Protein 7.8 g/dL (6.4-8.9); eGFR For African Americans > 60 (> 60); eGFR For Non-African Americans 56 (> 60)
[2022-06-03] MEDS ORDERED: Ketorolac 30 MG/ML VIAL IVP ONE (01:27)
[2022-06-03] MEDS ORDERED: Iopamidol - 370 500 ML MLS IVP ONE (01:28)
[2022-06-03 01:34] LABS: Adenovirus Not Detected (Not Detect); Coronavirus 229E Not Detected (Not Detect); Coronavirus HKU1 Not Detected (Not Detect); Coronavirus NL63 Not Detected (Not Detect); Coronavirus OC43 Not Detected (Not Detect)
[2022-06-03 01:37] LABS: SARS-CoV-2 DETECTED (Not Detect)
[2022-06-03 01:38] LABS: Bordetella Pertussis Not Detected (Not Detect); Chlamydophila pneumoniae Not Detected (Not Detect); Human Metapneumovirus Not Detected (Not Detect); Human Rhinovirus/Enterovirus Not Detected (Not Detect); Influenza A Subtype 2009 H1 Not Detected (Not Detect); Influenza B Not Detected (Not Detect); Mycoplasma pneumoniae Not Detected (Not Detect); Parainfluenza Virus 1 Not Detected (Not Detect); Parainfluenza Virus 2 Not Detected (Not Detect); Parainfluenza Virus 3 Not Detected (Not Detect); Parainfluenza Virus 4 Not Detected (Not Detect); Respiratory Syncytial Virus Not Detected (Not Detect)
[2022-06-03] MEDS ORDERED: Acetaminophen 325 MG TABLET PO PRN (04:35)
[2022-06-03] MEDS ORDERED: Melatonin 3 MG TABLET PO PRN (04:35)
[2022-06-03] MEDS ORDERED: Ondansetron 4 MG/2 ML VIAL IVP PRN (04:35)
[2022-06-03] MEDS ORDERED: Naloxone 0.4 MG/ML INJ IVP PRN (04:35)
[2022-06-03] MEDS ORDERED: 0.9 % Sodium Chloride 1,000 ML IVC SCH (04:45)
[2022-06-03] MEDS ORDERED: *HR* Dextrose 50 % in Water (Syg) 50 ML SYRINGE IVP PRN (05:19)
[2022-06-03] MEDS ORDERED: Dextrose Gel 15 GM/37.5 ML TUBE PO PRN ×2 (05:19)
[2022-06-03] MEDS ORDERED: D5% in Water 1,000 ML IVC PRN (05:19)
[2022-06-03] MEDS: *HR* Heparin 5,000 UNIT/ML VIAL SQ SCH ×2 (06:14→14:10)
[2022-06-03] MEDS: Insulin LISPRO 300 UNITS/3 ML VIAL SUBQ SCH ×3 (06:14→17:12)
[2022-06-03 09:57] LABS: Hematocrit 36.2 % (35.3-44.9); Hemoglobin 11.6 g/dL (11.5-15.4); Mean Corpuscular Hemoglobin 28.2 pg (28.0-33.3); Mean Corpuscular Volume 88.1 fL (83.0-100.0); Mean Platelet Volume 9.9 fL (9.4-12.4); Platelet Count 213 K/mcL (140-400); Red Blood Count 4.11 M/mcL (3.82-4.97); Red Cell Distribution Width 13.7 % (11.5-14.5); White Blood Count 13.7 K/mcL (4.3-11.1)
[2022-06-03 10:07] LABS: BUN/Creatinine Ratio 24 (6-26); Blood Urea Nitrogen 21 mg/dL (6-20); Calcium 7.7 mg/dL (8.6-10.3); Carbon Dioxide 22 mEq/L (23-29); Chloride 109 mEq/L (98-107); Glucose 97 mg/dL (70-105); Osmolality,Calculated 287 (280-300); Potassium 4.1 mEq/L (3.5-5.1); Sodium 137 mEq/L (136-145); eGFR For African Americans > 60 (> 60); eGFR For Non-African Americans > 60 (> 60)
[2022-06-03] MEDS ORDERED: *HR* OxyCODONE/APAP 5/325 TABLET PO PRN (13:26)
[2022-06-03] MEDS: *HR* HYDROcodone/Acet 5/325 mg TABLET PO PRN (14:10)
[2022-06-03 15:20] LABS: VBG Ionized Calcium 0.82 mmol/L (1.15-1.35)
[2022-06-03 18:24] LABS: Estimated Average Glucose 192 mg/dl; Hemoglobin A1C 8.3 %
[2022-06-03 19:33] LABS: CTX-M ESBL Gene Not Detected (Not Detect); IMP Carbapenem-Resist Gene Not Detected (Not Detect); NDM Carbapenem-Resist Gene Not Detected (Not Detect); OXA-48-like Carbap-Resist Gene Not Detected (Not Detect); VIM Carbapenem-Resist Gene Not Detected (Not Detect); blaKPC Carbapenem-Resist Gene Not Detected (Not Detect)
[2022-06-03 19:34] LABS: A.calcoaceticus-baumannii cplx Not Detected (Not Detect); Bacteroides fragilis by PCR Not Detected (Not Detect); Enterobacter cloacae Cmplx PCR Not Detected (Not Detect); Enterococcus faecalis by PCR Not Detected (Not Detect); Enterococcus faecium by PCR Not Detected (Not Detect); Staph epidermidis by PCR Not Detected (Not Detect); Staph lugdunensis by PCR Not Detected (Not Detect); Staphylococcus aureus by PCR Not Detected (Not Detect); Staphylococcus by PCR Not Detected (Not Detect); Streptococcus agalactiae(B)PCR Not Detected (Not Detect); Streptococcus by PCR Not Detected (Not Detect); Streptococcus pneumoniae PCR Not Detected (Not Detect); Streptococcus pyogenes (A) PCR Not Detected (Not Detect); mcr-1 Colistin-Resist Gene Not Detected (Not Detect); vanA/B Vancomycin-Resist Genes Not Detected (Not Detect)
[2022-06-03 19:35] LABS: Candida albicans by PCR Not Detected (Not Detect); Candida auris by PCR Not Detected (Not Detect); Candida glabrata by PCR Not Detected (Not Detect); Candida krusei by PCR Not Detected (Not Detect); Candida parapsilosis by PCR Not Detected (Not Detect); Candida tropicalis by PCR Not Detected (Not Detect); Crypto. neoformans/gattii PCR Not Detected (Not Detect); Escherichia coli by PCR DETECTED (Not Detect); Klebs. pneumoniae group by PCR Not Detected (Not Detect); Klebsiella aerogenes by PCR Not Detected (Not Detect); Klebsiella oxytoca by PCR Not Detected (Not Detect); Proteus by PCR Not Detected (Not Detect); Pseudomonas aeruginosa by PCR Not Detected (Not Detect); Salmonella species by PCR Not Detected (Not Detect); Serratia marcescens by PCR Not Detected (Not Detect); Stenotrophomonas maltophilia Not Detected (Not Detect)
[2022-06-03] MEDS: Ipratropium 1 PUFF INHALER IH SCH ×2 (20:02→23:34)
[2022-06-04] MEDS: Ipratropium 1 PUFF INHALER IH SCH ×6 (03:47→23:28)
[2022-06-04 05:27] LABS: Basophils % 0.4 %; Eosinophils % 0.2 %; Hematocrit 33.2 % (35.3-44.9); Immature Granulocytes % 0.4 % (0-4); Lymphocytes # 2.2 K/mcL (0.6-4.6); Lymphocytes % 19.5 %; Mean Corpuscular Hemoglobin 27.9 pg (28.0-33.3); Mean Platelet Volume 9.8 fL (9.4-12.4); Monocytes # 0.8 K/mcL (0.0-1.3); Monocytes % 7.2 %; Platelet Count 223 K/mcL (140-400); Red Blood Count 3.69 M/mcL (3.82-4.97); Red Cell Distribution Width 13.8 % (11.5-14.5); Segmented Neutrophils % 72.3 %
[2022-06-04 05:31] LABS: Hemoglobin 10.3 g/dL (11.5-15.4)
[2022-06-04 05:36] LABS: BUN/Creatinine Ratio 19 (6-26); Blood Urea Nitrogen 14 mg/dL (6-20); Calcium 7.7 mg/dL (8.6-10.3); Carbon Dioxide 22 mEq/L (23-29); Chloride 102 mEq/L (98-107); Glucose 168 mg/dL (70-105); Osmolality,Calculated 276 (280-300); Potassium 3.6 mEq/L (3.5-5.1); Sodium 131 mEq/L (136-145); eGFR For African Americans > 60 (> 60); eGFR For Non-African Americans > 60 (> 60)
[2022-06-04] MEDS: *HR* Enoxaparin 40 MG/0.4 ML SYRINGE SQ SCH (05:50)
[2022-06-04] MEDS ORDERED: Calcium Gluconate 1gm/50mL 1 GM/50 ML BAG IVPB ONE (07:24)
[2022-06-04] MEDS ORDERED: Furosemide 20 MG/2 ML VIAL IVP ONE (09:04)
[2022-06-04] MEDS ORDERED: Iopamidol - 370 500 ML MLS IVP ONE (09:09)
[2022-06-04] MEDS: cefTRIAXone 2,000 MG in 0.9 % Sodium Chloride Mini Bag 100 ML IVPB SCH (09:16)
[2022-06-04] MEDS: Insulin LISPRO 300 UNITS/3 ML VIAL SUBQ SCH ×4 (09:17→21:56)
[2022-06-04] MEDS ORDERED: Remdesivir 200 MG in 0.9 % Sodium Chloride 100 ML IVPB ONE (10:00)
[2022-06-04] MEDS: Gabapentin 400 MG CAPSULE PO SCH (20:28)
[2022-06-05 01:40] LABS: Basophils % 0.1 %; Hematocrit 37.2 % (35.3-44.9); Hemoglobin 11.7 g/dL (11.5-15.4); Immature Granulocytes % 0.3 % (0-4); Lymphocytes % 10.6 %; Mean Corpuscular HGB Conc 31.5 g/dL (31.6-35.5); Mean Corpuscular Hemoglobin 27.9 pg (28.0-33.3); Mean Corpuscular Volume 88.8 fL (83.0-100.0); Mean Platelet Volume 10.2 fL (9.4-12.4); Monocytes # 0.4 K/mcL (0.0-1.3); Monocytes % 4.9 %; Neutrophils # 7.5 K/mcL (1.6-8.9); Platelet Count 252 K/mcL (140-400); Red Blood Count 4.19 M/mcL (3.82-4.97); Red Cell Distribution Width 13.4 % (11.5-14.5); Segmented Neutrophils % 84.1 %
[2022-06-05 02:00] LABS: Alanine Aminotransferase 14 Units/L (7-52); Albumin 3.2 g/dL (3.5-5.7); Albumin/Globulin Ratio 0.8 (1.1-2.2); Alkaline Phosphatase 101 Units/L (34-104); Aspartate Amino Transferase 13 Units/L (13-39); BUN/Creatinine Ratio 26 (6-26); Bilirubin,Direct 0.1 mg/dL (0.0-0.2); Bilirubin,Indirect 0.2 mg/dL (0.0-1.0); Bilirubin,Total 0.3 mg/dL (0.3-1.0); Blood Urea Nitrogen 19 mg/dL (6-20); Calcium 8.8 mg/dL (8.6-10.3); Carbon Dioxide 23 mEq/L (23-29); Chloride 102 mEq/L (98-107); Globulin 4.1 g/dL (2.4-3.5); Glucose 411 mg/dL (70-105); Osmolality,Calculated 300 (280-300); Potassium 3.7 mEq/L (3.5-5.1); Sodium 135 mEq/L (136-145); Total Protein 7.3 g/dL (6.4-8.9); eGFR For African Americans > 60 (> 60); eGFR For Non-African Americans > 60 (> 60)
[2022-06-05] MEDS: Ipratropium 1 PUFF INHALER IH SCH ×6 (04:34→23:00)
[2022-06-05] MEDS: *HR* Enoxaparin 40 MG/0.4 ML SYRINGE SQ SCH (05:21)
[2022-06-05] MEDS: cefTRIAXone 2,000 MG in 0.9 % Sodium Chloride Mini Bag 100 ML IVPB SCH (09:28)
[2022-06-05] MEDS: Insulin LISPRO 300 UNITS/3 ML VIAL SUBQ SCH ×4 (09:32→20:39)
[2022-06-05] MEDS: Famotidine 20 MG TABLET PO SCH (09:33)
[2022-06-05] MEDS: Aspirin 81 MG TAB.CHEW PO SCH (09:33)
[2022-06-05] MEDS: Gabapentin 400 MG CAPSULE PO SCH ×2 (09:46→20:34)
[2022-06-05] MEDS ORDERED: Remdesivir 100 MG in 0.9 % Sodium Chloride 100 ML IVPB SCH (10:00)
[2022-06-05] MEDS ORDERED: *HR* Dextrose 50 % in Water (Syg) 50 ML SYRINGE IVP PRN (11:31)
[2022-06-05] MEDS ORDERED: Insulin DETEMIR 100 UNIT/ML X5UNITS SUBQ ONE (11:32)
[2022-06-05] MEDS ORDERED: Insulin LISPRO 300 UNITS/3 ML VIAL SUBQ SCH (11:34)
[2022-06-05] MEDS: Insulin DETEMIR 100 UNIT/ML X5UNITS SUBQ SCH (20:35)
[2022-06-05] MEDS ORDERED: Insulin DETEMIR 100 UNIT/ML X5UNITS SUBQ SCH (21:00)
[2022-06-05 23:05] VITALS: TEMP 98.2
[2022-06-06 01:39] LABS: Basophils % 0.3 %; Hematocrit 33.5 % (35.3-44.9); Hemoglobin 10.6 g/dL (11.5-15.4); Immature Granulocytes % 0.4 % (0-4); Lymphocytes # 2.3 K/mcL (0.6-4.6); Lymphocytes % 20.5 %; Mean Corpuscular HGB Conc 31.6 g/dL (31.6-35.5); Mean Corpuscular Hemoglobin 28.1 pg (28.0-33.3); Mean Corpuscular Volume 88.9 fL (83.0-100.0); Mean Platelet Volume 10.5 fL (9.4-12.4); Monocytes # 0.6 K/mcL (0.0-1.3); Monocytes % 5.1 %; Neutrophils # 8.2 K/mcL (1.6-8.9); Platelet Count 277 K/mcL (140-400); Red Blood Count 3.77 M/mcL (3.82-4.97); Red Cell Distribution Width 13.5 % (11.5-14.5); Segmented Neutrophils % 73.7 %; White Blood Count 11.1 K/mcL (4.3-11.1)
[2022-06-06 02:03] LABS: Albumin/Globulin Ratio 0.8 (1.1-2.2); Bilirubin,Indirect 0.2 mg/dL (0.0-1.0); Bilirubin,Total 0.2 mg/dL (0.3-1.0); Globulin 3.9 g/dL (2.4-3.5); Total Protein 6.9 g/dL (6.4-8.9)
[2022-06-06 02:05] LABS: BUN/Creatinine Ratio 35 (6-26); Blood Urea Nitrogen 24 mg/dL (6-20); Calcium 9.1 mg/dL (8.6-10.3); Carbon Dioxide 23 mEq/L (23-29); Chloride 103 mEq/L (98-107); Glucose 233 mg/dL (70-105); Magnesium 1.8 mg/dL (1.6-2.6); Osmolality,Calculated 290 (280-300); Potassium 4.4 mEq/L (3.5-5.1); Sodium 134 mEq/L (136-145); eGFR For African Americans > 60 (> 60); eGFR For Non-African Americans > 60 (> 60)
[2022-06-06 02:10] LABS: Platelet Estimate Normal (Normal); Smudge Cells Present (Not Present)
[2022-06-06] MEDS: Ipratropium 1 PUFF INHALER IH SCH ×4 (03:36→11:21)
[2022-06-06] MEDS: *HR* Enoxaparin 40 MG/0.4 ML SYRINGE SQ SCH (05:58)
[2022-06-06 08:14] VITALS: PULSE 73
[2022-06-06] MEDS: Gabapentin 400 MG CAPSULE PO SCH (08:25)
[2022-06-06] MEDS: Aspirin 81 MG TAB.CHEW PO SCH (08:25)
[2022-06-06] MEDS: Famotidine 20 MG TABLET PO SCH (08:25)
[2022-06-06] MEDS: cefTRIAXone 2,000 MG in 0.9 % Sodium Chloride Mini Bag 100 ML IVPB SCH (08:25)
[2022-06-06] MEDS: Insulin LISPRO 300 UNITS/3 ML VIAL SUBQ SCH (08:26)
[2022-06-06] MEDS: Insulin DETEMIR 100 UNIT/ML X5UNITS SUBQ SCH (08:37)
[2022-06-06] MEDS: *HR* HYDROcodone/Acet 5/325 mg TABLET PO PRN (08:38)
[2022-06-06 09:36] VITALS: O2SAT 96
[2022-06-06 11:16] VITALS: BP 120/59
== END 2022-06-06 12:11 | disposition home or self-care (01) | DRG 871 ==
LOC: EMEROOARM 23:34 → 2NENU 23:34 → SUATTDRO 06-03 03:02 → 2NENU 06-03 04:45 → SUATTDRO 06-04 13:42
PROVIDERS: ADMIT Internal Medicine; ATTEND Internal Medicine